=== PATIENT | female | born 1955 | race Caucasian/White ===

== ENCOUNTER 2020-05-21 14:01 | Emergency (ER) | payer BC, SELFPAY ==
[2020-05-21 14:07] VITALS: BP 164/57; BP 170/80; PULSE 72; PULSE 76; RESP 18; TEMP 37.1; O2SAT 100; O2SAT 98; BMI 35.5
--- NOTE | 2020-05-21 14:26 | CT_ITS ---
EXAMINATION: CT HEAD WITHOUT CONTRAST CLINICAL INFORMATION: General weakness. COMPARISON: None TECHNIQUE: Contiguous axial imaging was performed from the skull base to vertex without intravenous administration of contrast. This CT examination was performed using dose optimization techniques as appropriate, variously including the following: *Automated exposure control *Adjustment of mA and/or kV according to patient size (this includes techniques or standardized protocols for targeted exams where dose is matched to indication/reason for exam; i.e. extremities or head) *Use of iterative reconstruction technique DLP: 706 mGy-cm FINDINGS: There is no evidence of acute intracranial hemorrhage or territorial infarction. No abnormal mass effect or midline shift is seen. Cartwright to white matter differentiation is well preserved. No extra-axial fluid collections are identified. The ventricles are normal in size. There is no abnormal attenuation within the brain parenchyma. The osseous structures and soft tissues are normal. The mastoid air cells and visualized portions of the paranasal sinuses are well aerated. CT/CT head/brain wo con IMPRESSION: No acute intracranial pathology.
--- NOTE | 2020-05-21 14:26 | XR_ITS ---
EXAMINATION: XR CHEST CLINICAL INFORMATION: Generalized weakness COMPARISON: January 28, 2020 TECHNIQUE: AP portable view of the chest was obtained. FINDINGS: There is no evidence of acute parenchymal disease, pneumothorax, or pleural effusion. Heart normal size. No evidence of pulmonary edema. Mediastinal contours unremarkable. There is degenerative marginal spurring seen throughout the thoracic spine. XR/XR chest 1V IMPRESSION: No acute parenchymal disease.
--- NOTE | 2020-05-21 14:26 | ECG_ITS ---
Test Reason : GENERALIZED WEAKNESS Blood Pressure : / mmHG Vent. Rate : 060 BPM Atrial Rate : 060 BPM P-R Int : 208 ms QRS Dur : 102 ms QT Int : 404 ms P-R-T Axes : 013 034 038 degrees QTc Int : 404 ms Normal sinus rhythm Normal ECG No previous ECGs available Referred By: Melissa Schuster Electronically Signed By:CHAVEZ KNOX MD
--- NOTE | 2020-05-21 14:41 | US_ITS ---
EXAMINATION: US VENOUS ULTRASOUND WITH DOPPLER LOWER EXTREMITY, RIGHT CLINICAL INFORMATION: Right thigh knee pain COMPARISON: None TECHNIQUE: Ultrasound of the deep veins is performed from the hip to the calf with compression sonography and color and pulse Doppler assessment. Spectral analysis with color-flow imaging is performed. FINDINGS: There is normal venous compression and respiratory variation and augmented flow. The visualized common femoral vein, superficial femoral vein, profunda femoral vein, popliteal vein, and the trifurcation region shows no evidence of deep venous thrombosis. There is no significant popliteal fossa cyst. If the patient's symptoms persist, followup ultrasound in 5 days 7 days might be of value to exclude proximal propagation from a non-visualized calf vein. US/US venous duplex LE RT IMPRESSION: No DVT demonstrated in the right lower extremity.
[2020-05-21 15:27] LABS: MANUAL DIFF FLAG NO
[2020-05-21 15:28] LABS: Basophils Percent Auto 0.3 % (0-2); Eosinophils Absolute Auto 0.1 X10*3/uL (0.0-0.4); Eosinophils Percent Auto 0.8 % (0-4); Hematocrit 35.5 % (37-47); Hemoglobin 11.8 g/dl (12.0-16.0); Imm Gran Abs Auto 0.01 X10*3/uL (0.00-0.03); Imm Gran Pct Auto 0.2 % (0.0-0.4); Lymphocytes Absolute Auto 1.4 X10*3/uL (1.2-4.9); Lymphocytes Percent Auto 20.8 % (20-40); Mean Corpuscular HGB Conc 33.2 g/dl (31.0-35.0); Mean Corpuscular Hemoglobin 28.6 pg (27.0-33.0); Mean Corpuscular Volume 86.2 fL (80-98); Mean Platelet Volume 9.4 fL (9.4-12.3); Monocytes Absolute Auto 0.4 X10*3/uL (0.1-1.2); Monocytes Percent Auto 6.3 % (2-11); Neutrophils Absolute Auto 4.8 X10*3/uL (2.0-8.3); Neutrophils Percent Auto 71.6 % (45-73); Platelet Count 283 X10*3/uL (160-400); Red Blood Count 4.12 X10*6/uL (4.20-5.50); Red Cell Distribution Width 11.8 % (11.0-16.0); White Blood Count 6.6 X10*3/uL (4.8-10.8)
[2020-05-21 15:33] LABS: Prothrombin Time 11.9 SEC (10.8-13.0)
--- NOTE | 2020-05-21 15:34 | ED_ITS ---
HPI - Weakness General Chief complaint: Weakness Stated complaint: Weakness Time Seen by Provider: 05/21/20 14:25 Source: patient Mode of arrival: ambulatory Limitations: no limitations History of Present Illness HPI Narrative: 64yoF c PMHx of HLD, HTN and DM presenting to the ED c c/o lightheadedness x 3 days worse with changing position of head, bending over forward. Relieved by laying down. Patient also reports pain to the right upper outer aspect of thigh. Denies recent head injury or loss of consciousness or falls. Denies any other symptoms complaints or concerns at this time. Denies ever having this before. Related Data Previous Rx's Medication Instructions Recorded meclizine 25 mg PO BID PRN #10 tab 05/21/20 Allergies Allergy/AdvReac Type Severity Reaction Status Date / Time meloxicam Allergy Unknown Verified 05/21/20 14:15 topiramate [From Topamax] Allergy Unknown Verified 05/21/20 14:15 trazodone Allergy Numbness Verified 05/21/20 14:15 Review of Systems Review of Systems: Constitutional : No Fever, No Chills, No Night Sweats, No Fatigue, No Malaise ENT/Mouth : No Ear Pain, No Nasal Congestion, No Sinus Pain, No sore throat, No Rhinorrhea Eyes: No Eye Pain, No Swelling, No Redness, No Foreign Body, No Discharge, No Vision Changes Cardiovascular : No Chest Pain, No SOB, No Dyspnea on Exertion, No Orthopnea, No Palpitations Respiratory : No Cough, No Sputum, No Wheezing, No Dyspnea Gastrointestinal : No Nausea, No Vomiting, No Diarrhea, No Constipation, No abdominal Pain, No Hematochezia, No Melena Genitourinary : No Dysuria, No Urinary Frequency, No Urinary Incontinence, No Urgency, No Flank Pain Musculoskeletal : No joint pain, No Myalgias Skin : No lacerations Neuro : + Lightheadedness pt reports not dizziness, No Numbness, No Paresthesias, No Loss of Consciousness, No Headache Yes all other systems are reviewed and are negative [facility] Past Medical History Attestation statement: The following information was validated with the patient. Medical History Diabetes High cholesterol HTN (hypertension) Social History Social History Advance Directives: No Advance Directives Information Provided: Yes Physical Exam Vital Signs: Vital Signs: Last Vital Signs Temp 98.8 F 05/21/20 14:07 Pulse 89 05/21/20 16:09 Resp 18 05/21/20 14:07 BP 187/73 H 05/21/20 16:09 Pulse Ox 100 05/21/20 14:07 Body Mass Index 35.5 Vital signs have been reviewed as normal and appeared to be correct. Blood pressure normal. Heart rate normal. Respiration rate normal. Temperature normal. Oxygen saturation normal. Appearance: Alert. Oriented X3. No acute distress. Head: Normal external exam. Normocephalic. Atraumatic. Able to rotate head b ilaterally. Eyes: PERRLA. EOMI. No nystagmus noted. Conjunctiva and sclera normal. Eyelids normal. Corneal reflex normal. ENT: EAC normal. TM's Normal. Hearing normal. Pharynx normal. Uvula midline. tongue midline. Moist mucous membranes. No trismus noted. No drooling noted. No muffled voice noted. Neck: Normal inspection. Neck supple. FROM. No adenopathy. Thyroid Normal. No meningeal signs. No neck mass noted. CVS: Normal heart rate and rhythm. Heart sound normal. No murmurs noted. Pulses normal throughout. Respiratory: No respiratory distress. Painless inspiration. Breath sounds norm al. No wheezes/rales/rhonchi noted. Chest nontender. No accessory muscle usage noted or decreased air movement noted. Abdomen: Soft and nontender. Bowel sounds normal in all 4 quadrants. No distenti on noted. No organomegaly noted. No visible injury noted. Back: No CVA tenderness. Full range of motion noted. Skin: Skin warm and dry. Normal skin color. Normal skin turgor. No rashes/lesions/lacerations noted. Extremities: TTP to right upper outer aspect of thigh. No lower extremity edema. Extremities exhibit normal range of motion. otherwise all other Extremities nontender. Able to shrug shoulders bilaterally and keep up against resistance. Neuro: Oriented X 3. No motor deficit. No sensory deficit. Reflexes normal. Moving all extremities. No focal motor deficits. Cranial nerves II-XI intact bilaterally. Facial strength normal. Normal cognition. Speech normal. Gait normal. Strength 5/5 throughout. No pronator drift. No tremor noted. No fasciculations noted. Muscle tone normal throughout. No asterixis noted. Axwjan-ma-oipj test normal. Heel to mary test normal. Tandem gait normal. Does not sway with eyes open. Romberg test negative. Rapid alternating movement upper extremity normal. Rapid alternating movement lower extremity normal. Hand drop from overhead-Mrs. face. No rigidity noted. NIHSS score 0. NIH Stroke Scale Internal: Initial- Upon Arrival Time: 14:26 Level of Consciousness: Alert Level of Consciousness Questions: Answers both questions correctly Level of Consciousness Commands: Performs both tasks correctly Best Gaze: Normal Visual: No visual loss Facial Palsy: Normal Motor Arm (Right): No drift Motor Arm (Left): No drift Motor Leg (Right): No drift Motor Leg (Left): No drift Limb Ataxia: Absent Sensory: Normal Best Language: No aphasia Dysarthia: Normal Extinction and Inattention: No abnormality Score: 0 Course Course Course Narrative: 14:26PM - 64yoF c PMHx of HLD, HTN and DM presenting to the ED c c/o lightheadedness x 3 days worse with changing position of head, bending over forward. Relieved by laying down. Patient also reports pain to the right outer aspect of the thigh. - on exam patient is alert and oriented x3. No acute neuro deficits noted. Patient has a normal steady gait. NIH SS score 0. TPA not indicated at this time due to symptoms to mild and non disabling. - Concern for CVA vs FL vs electrolyte abnormality vs orthostatic hypotension vs vertigo vs DVT vs leg strain - Plan: Labs, CT scan of brain, CXR, EKG, Orthostatic vitals, US of RLE then re-evaluate. Reevaluation(s) Reevaluation #1: - All labs WNL. CT scan of brain WNL. CXR WNL. Orthostatic vitals WNL. EKG NSR no acute ischemic changes noted. - patient requesting COVID swab therefore will swab. Will give 50 mg of mecl izine patient most likely vertigo as this has been occurring for the past 3 days therefore no further imaging indicated at this time. - will DC home with a script for meclizine and instructions to return if any new or worsening symptoms to follow-up with primary care provider. Patient understands agrees the plan. Time: 17:34 [facility] - Weakness Medical Records Attestation: I reviewed the patient's medical records. Lab Data Attestation: I reviewed the patient's lab results. Result diagrams: 05/21/20 15:19 05/21/20 15:19 Labs: Lab Results 05/21/20 05/21/20 05/21/20 Range/Units 15:19 15:19 15:19 WBC 6.6 (4.8-10.8) X10*3/uL RBC 4.12 L (4.20-5.50) X10*6/uL Hgb 11.8 L (12.0-16.0) g/dl Hct 35.5 L (37-47) % MCV 86.2 (80-98) fL MCH 28.6 (27.0-33.0) pg MCHC 33.2 (31.0-35.0) g/dl RDW 11.8 (11.0-16.0) % Plt Count 283 (160-400) X10*3/uL MPV 9.4 (9.4-12.3) fL Immature Gran % (Auto) 0.2 (0.0-0.4) % Neut % (Auto) 71.6 (45-73) % Lymph % (Auto) 20.8 (20-40) % [place] % (Auto) 6.3 (2-11) % Eos % (Auto) 0.8 (0-4) % Baso % (Auto) 0.3 (0-2) % Lymph # (Auto) 1.4 (1.2-4.9) X10*3/uL [place] # (Auto) 0.4 (0.1-1.2) X10*3/uL Eos # (Auto) 0.1 (0.0-0.4) X10*3/uL Baso # (Auto) 0.0 (0.0-0.2) X10*3/uL Abs Immat Gran (auto) 0.01 (0.00-0.03) X10*3/uL Absolute Neuts (auto) 4.8 (2.0-8.3) X10*3/uL Absolute Nucleated RBC 0.000 (0.0-0.012) X10*3/uL Nucleated RBC % (auto) 0.0 (0.0-0.2) /100WBC PT 11.9 (10.8-13.0) SEC INR 1.0 (0.9-1.1) Sodium 138 (135-145) mmol/L Potassium 4.4 (3.3-5.1) mmol/l Chloride 100 (96-108) mmol/L Carbon Dioxide 31 H (22-29) mmol/L Anion Gap 11 L (12-20) BUN 17 H (9-16) mg/dL Creatinine 0.79 (0.5-1.4) mg/dL Estim Creat Clear Calc 85.7 Estimated GFR > 60 Random Glucose 136 H (60-115) mg/dL Calcium 9.1 (8.4-10.2) mg/dL Magnesium (1.6-2.6) mg/dL Total Bilirubin (0.0-1.0) mg/dL Direct Bilirubin (0.0-0.5) mg/dL AST (5-31) U/L ALT (0-31) U/L Alkaline Phosphatase (39-117) U/L Troponin I High Sens (<3.5-17.0) ng/L Total Protein (6.5-8.0) g/dL Albumin (3.5-5.0) g/dL 05/21/20 05/21/20 Range/Units 15:19 15:19 WBC (4.8-10.8) X10*3/uL RBC (4.20-5.50) X10*6/uL Hgb (12.0-16.0) g/dl Hct (37-47) % MCV (80-98) fL MCH (27.0-33.0) pg MCHC (31.0-35.0) g/dl RDW (11.0-16.0) % Plt Count (160-400) X10*3/uL MPV (9.4-12.3) fL Immature Gran % (Auto) (0.0-0.4) % Neut % (Auto) (45-73) % Lymph % (Auto) (20-40) % [place] % (Auto) (2-11) % Eos % (Auto) (0-4) % Baso % (Auto) (0-2) % Lymph # (Auto) (1.2-4.9) X10*3/uL [place] # (Auto) (0.1-1.2) X10*3/uL Eos # (Auto) (0.0-0.4) X10*3/uL Baso # (Auto) (0.0-0.2) X10*3/uL Abs Immat Gran (auto) (0.00-0.03) X10*3/uL Absolute Neuts (auto) (2.0-8.3) X10*3/uL Absolute Nucleated RBC (0.0-0.012) X10*3/uL Nucleated RBC % (auto) (0.0-0.2) /100WBC PT (10.8-13.0) SEC INR (0.9-1.1) Sodium (135-145) mmol/L Potassium (3.3-5.1) mmol/l Chloride (96-108) mmol/L Carbon Dioxide (22-29) mmol/L Anion Gap (12-20) BUN (9-16) mg/dL Creatinine (0.5-1.4) mg/dL Estim Creat Clear Calc Estimated GFR Random Glucose (60-115) mg/dL Calcium (8.4-10.2) mg/dL Magnesium 2.0 (1.6-2.6) mg/dL Total Bilirubin 0.4 (0.0-1.0) mg/dL Direct Bilirubin < 0.2 (0.0-0.5) mg/dL AST 18 (5-31) U/L ALT 20 (0-31) U/L Alkaline Phosphatase 74 (39-117) U/L Troponin I High Sens < 3.5 (<3.5-17.0) ng/L Total Protein 6.6 (6.5-8.0) g/dL Albumin 4.2 (3.5-5.0) g/dL Imaging Data Chest x-ray: Attestation: I personally reviewed and interpreted this imaging study as follows: Radiologist's impression: FINDINGS: There is no evidence of acute parenchymal disease, pneumothorax, or pleural effusion. Heart normal size. No evidence of pulmonary edema. Mediastinal contours unremarkable. There is degenerative marginal spurring seen throughout the thoracic spine. XR/XR chest 1V IMPRESSION: No acute parenchymal disease. CT scan - head: Attestation: I personally reviewed and interpreted this imaging study as follows: Radiologist's impression: FINDINGS: There is no evidence of acute intracranial hemorrhage or territorial infarction. No abnormal mass effect or midline shift is seen. Cartwright to white matter differentiation is well preserved. No extra-axial fluid collections are identified. The ventricles are normal in size. There is no abnormal attenuation within the brain parenchyma. The osseous structures and soft tissues are normal. The mastoid air cells and visualized portions of the paranasal sinuses are well aerated. CT/CT head/brain wo con IMPRESSION: No acute intracranial pathology. right leg ultrasound: Attestation: I personally reviewed and interpreted this imaging study as follows: Radiologist's impression: FINDINGS: There is no evidence of acute intracranial hemorrhage or territorial infarction. No abnormal mass effect or midline shift is seen. Cartwright to white matter differentiation is well preserved. No extra-axial fluid collections are identified. The ventricles are normal in size. There is no abnormal attenuation within the brain parenchyma. The osseous structures and soft tissues are normal. The mastoid air cells and visualized portions of the paranasal sinuses are well aerated. CT/CT head/brain wo con IMPRESSION: No acute intracranial pathology. ECG Data Attestation: I personally reviewed and interpreted this ECG as follows: ECG interpretation date: 05/21/20 ECG interpretation time: 15:11 Interpretation: Normal sinus rhythm with a ventricular rate of 60 with normal NM interval and normal QRS duration. Normal QT/QTC interval. No acute ischemic changes. Discharge Plan Discharge Clinical Impression: Vertigo, Muscle strain Patient Disposition: Home, Self-Care Instructions: Vertigo (ED) Prescriptions: New meclizine 25 mg tablet 25 mg PO BID PRN (Reason: dizziness) Qty: 10 RF: 0 Referrals: Jerald Singh MD [Primary Care Provider] - 2 days Print Language: Israeli
[2020-05-21 15:47] LABS: Anion Gap 11 (12-20); Blood Urea Nitrogen 17 mg/dL (9-16); Calcium 9.1 mg/dL (8.4-10.2); Carbon Dioxide 31 mmol/L (22-29); Chloride 100 mmol/L (96-108); Creatinine Clr Calc Pharmacy 85.7; Estimated Glomerular Filt Rate > 60; Glucose Random 136 mg/dL (60-115); Potassium 4.4 mmol/l (3.3-5.1); Sodium 138 mmol/L (135-145)
[2020-05-21 15:49] LABS: Alanine Aminotransferase 20 U/L (0-31); Albumin Level 4.2 g/dL (3.5-5.0); Alkaline Phosphatase 74 U/L (39-117); Aspartate Amino Transferase 18 U/L (5-31); Bilirubin Direct < 0.2 mg/dL (0.0-0.5); Bilirubin Total 0.4 mg/dL (0.0-1.0); Total Protein 6.6 g/dL (6.5-8.0)
[2020-05-21 15:55] LABS: Troponin-I High Sensitivity < 3.5 ng/L (<3.5-17.0)
[2020-05-21 16:07] VITALS: BP 162/67; PULSE 81
[2020-05-21 16:08] VITALS: BP 150/55; PULSE 75
[2020-05-21 16:09] VITALS: BP 187/73; PULSE 89
[2020-05-21] MEDS: Meclizine HCl 25 MG TABLET 50 MG PO (17:22)
--- NOTE | 2020-05-21 17:22 | PC.NURSE ---
MEDICATED PER ORDERS WITH MECLIZIINE
--- NOTE | 2020-05-21 18:19 | PC.NURSE ---
CLEARED FOR DC BY PROVIDER.
[2020-05-21 18:39] LABS: Influenza A PCR NEGATIVE (Negative); Influenza B PCR NEGATIVE (Negative); Resp Syncy Virus RNA Qual PCR NEGATIVE (Negative); SARS COV2 PCR INHOUSE NEGATIVE (Negative)
== END 2020-05-21 18:18 | disposition home or self-care (01) ==
PROVIDERS: Physician Assistant Medical; Emergency Provider Emergency Medicine; PCP Internal Medicine Medical Oncology
DX: S76.911A Strain of unspecified muscles, fascia and tendons at thigh level, right thigh, initial encounter (principal); R60.0 Localized edema; R42 Dizziness and giddiness; R53.1 Weakness; X58.XXXA Exposure to other specified factors, initial encounter; Y93.9 Activity, unspecified; Y92.9 Unspecified place or not applicable; Y99.9 Unspecified external cause status; Z79.899 Other long term (current) drug therapy
CPT/HCPCS: 0241U; 36415; 70450; 71045; 80048; 80076; 83735; 84484; 85025; 85610; 93005; 93971; 99283; 99284

== ENCOUNTER 2021-05-14 09:12 | Outpatient (REF) | payer MEDICARE, SELFPAY | END 2021-05-14 09:13 | disposition home or self-care (01) | LOC: HO.LAB 09:12 | PROVIDERS: PCP Internal Medicine Medical Oncology; Visit Provider Internal Medicine | DX: Z20.822 Contact with and (suspected) exposure to COVID-19 (principal) | CPT/HCPCS: C9803; U0003; U0005 ==

== ENCOUNTER 2023-11-20 08:05 | Emergency (ER) | payer MEDICARE, SELFPAY ==
--- NOTE | ~2023-11-20 | XR_ITS ---
EXAMINATION: XR CHEST CLINICAL INFORMATION: Palpitations COMPARISON: 05/21/2020 TECHNIQUE: 2 views of the chest were obtained. FINDINGS: No significant abnormality is noted involving the heart, lungs, mediastinum, bony thorax or soft tissues. XR/XR chest 2V IMPRESSION: Unremarkable examination.
--- NOTE | 2023-11-20 08:10 | ECG_ITS ---
Test Reason : afib Blood Pressure : / mmHG Vent. Rate : 072 BPM Atrial Rate : 072 BPM P-R Int : 186 ms QRS Dur : 092 ms QT Int : 358 ms P-R-T Axes : 038 021 034 degrees QTc Int : 392 ms Normal sinus rhythm Possible Left atrial enlargement Borderline ECG When compared to the previous EKG of No significant changes seen Referred By: Generic ED Physician Electronically Signed By:SHILA BAHENA MD
[2023-11-20 08:12] VITALS: BP 148/59; PULSE 80; RESP 19; TEMP 36.6; O2SAT 97; BMI 32.3
[2023-11-20 08:32] LABS: MANUAL DIFF FLAG NO
[2023-11-20 08:34] LABS: Basophils Percent Auto 0.7 % (0-2); Eosinophils Absolute Auto 0.1 X10*3/uL (0.0-0.4); Hematocrit 38.9 % (37.0-47.0); Hemoglobin 13.6 g/dl (12.0-16.0); Imm Gran Abs Auto 0.01 X10*3/uL (0.00-0.03); Imm Gran Pct Auto 0.2 % (0.0-0.4); Lymphocytes Absolute Auto 1.7 X10*3/uL (1.2-4.9); Lymphocytes Percent Auto 28.2 % (20-40); Mean Corpuscular Hemoglobin 29.3 pg (27.0-33.0); Mean Corpuscular Volume 83.8 fL (80.0-98.0); Mean Platelet Volume 9.2 fL (9.4-12.3); Monocytes Absolute Auto 0.3 X10*3/uL (0.1-1.2); Monocytes Percent Auto 5.2 % (2-11); Neutrophils Absolute Auto 3.8 x10*3/uL (2.0-8.3); Neutrophils Percent Auto 64.7 % (45-73); Platelet Count 348 X10*3/uL (160-400); Red Blood Count 4.64 X10*6/uL (4.20-5.50); Red Cell Distribution Width 11.9 % (11.0-16.0); White Blood Count 5.9 X10*3/uL (4.8-10.8)
[2023-11-20 08:40] LABS: Prothrombin Time 12.3 SEC (11.1-13.3)
[2023-11-20 08:47] LABS: Anion Gap 14 (12-20); Blood Urea Nitrogen 13 mg/dL (9-16); Calcium 9.9 mg/dL (8.4-10.2); Carbon Dioxide 28 mmol/L (22-29); Chloride 103 mmol/L (96-108); Creatinine Clr Calc Pharmacy 80.3; Estimated Glomerular Filt Rate > 60; Glucose Random 110 mg/dL (60-115); Potassium 4.1 mmol/L (3.3-5.1); Sodium 141 mmol/L (135-145)
[2023-11-20 08:55] LABS: Troponin-I High Sensitivity 3.5 ng/L (<3.5-17.0)
[2023-11-20 12:24] VITALS: BP 149/58; PULSE 60; RESP 15; O2SAT 99
--- NOTE | 2023-11-20 12:31 | PC.NURSE ---
Pt presents to ED from home, reports around 10PM last night she started to feel palpitations and rapid heart beat. Pt reports this lasted through the night, along with mild chest pressure 2/10 in substernal area. Pt reports the palpitations have resolved, no hx of afib or other cardiac issues. Pt called her PCP who advised her to come into ED. Pt denies any SOB, N/V/D, fevers, cough, recent illnesses or falls/injury. Pt is alert and oriented, breathing even and unlabored, skin warm and dry. VSS, pt placed on bedside laboratory monitor, NSR at this time.
--- NOTE | 2023-11-20 12:39 | ED.ARRPALP ---
HPI - Arrhythmia/Palpitations General Chief Complaint: Arrhythmia/Palpitations Stated Complaint: Afib Time Seen by Provider: 11/20/23 12:07 Source: patient Mode of arrival: ambulatory History of Present Illness HPI narrative: 68-year-old female with history of diabetes/thyroid dysfunction/hypertension, currently compliant on all medication, saw her primary care doctor approximately 1 month ago and lab work at that time was within normal limits. Denies any excessive alcohol use, has been on Ozempic for proximally 1 month and presents with onset of pounding heart/rapid heart rate that started approximately 2 hours after she went to bed and was having difficulty falling asleep, according to the patient her watch indicated that she may be experiencing atrial fibrillation, she states that this situation lasted a total of 6 hours but denied any shortness of breath or difficulty breathing during that time. She denies any recent changes in medications or initiation of new medications. Related Data Previous Rx's ?Medication ?Instructions ?Recorded meclizine 25 mg tablet 25 mg PO BID PRN dizziness #10 tabs 05/21/20 Allergies Allergy/AdvReac Type Severity Reaction Status Date / Time celecoxib [From Celebrex] Allergy Hypertensio Verified 11/20/23 08:14 n meloxicam Allergy Unknown Verified 11/20/23 08:14 topiramate [From Topamax] Allergy Unknown Verified 11/20/23 08:14 trazodone Allergy Numbness Verified 11/20/23 08:14 Review of Systems Review of Systems: Pertinent positives and negatives as stated in HPI PMFSH Past Medical History Source: nursing notes reviewed Medical History Diabetes High cholesterol HTN (hypertension) Social History Social History Smoked in Last 30 Days: No Use of substances other than those prescribed or required for medical reasons: No Advance Directives: No Advance Directives Information Provided: Yes Physical Exam Vital Signs: Vital Signs: Last Vital Signs Temp 98 F 11/20/23 08:12 Pulse 60 11/20/23 12:24 Resp 15 11/20/23 12:24 BP 149/58 H 11/20/23 12:24 Pulse Ox 99 11/20/23 12:24 O2 Del Method Room Air 11/20/23 12:24 BMI result Body Mass Index 32.3 VITAL SIGNS: Reviewed. GENERAL: Well developed, well nourished, in no acute distress. HEAD: Normocephalic/atraumatic EYES: PERRLA, EOMI LUNGS: Normal breath sounds. No adventitious sounds or accessory muscle use. SpO2<99> CARDIOVASCULAR: Regular rate and rhythm without noted murmurs, no JVD or lower extremity edema. ABDOMEN: Soft, non-tender, non-distended with bowel sounds. MUSCULOSKELETAL: No tenderness, deformities, or effusions noted on gross inspection. EXTREMITIES: No cyanosis, clubbing or edema. SKIN: Inspection of the skin reveals no rashes NEUROLOGIC: Alert and oriented x 4. Strength and sensation to light touch were grossly intact x 4. Medical Decision Making Medical Decision Making [facility] Narrative: 68-year-old female with history and clinical presentation, DDX: Possibility of SVT/atrial fibrillation/PVCs secondary to infection/fever/electrolyte derangement. I reviewed all investigations and hematologic indices are negative for leukocytosis/anemia/thrombocytopenia. Coagulation studies are within normal limits. Chemistry indices do not indicate any ERICK or electrolyte derangement and high sensitivity troponin levels are detectable but not elevated and there are no acute arrhythmias or ST elevations noted on EKG. Chest x-ray negative for infiltrate or venous congestion otherwise my interpretation is in agreement with radiology's impression. Patient is not currently in an irregular heart rhythm, inappropriate to calculate chads Vasc score at this time, patient is hemodynamically stable and otherwise will benefit from outpatient follow-up in the short term for evaluation with either event monitor or Holter monitor and outpatient echocardiogram. She was discharged with return precautions. Differential Diagnosis Differential Diagnoses: The differential diagnosis associated with the presentation includes Please see the discussion above Admission/Observation Consideration of admission/observation: Escalation of care including admission/observation considered Please see the discussion above Lab Data [facility] Lab Attestation statement: I reviewed the patient's lab results. Please see the discussion above 11/20/23 08:29 11/20/23 08:29 Labs: Lab Results 11/20/23 Range/Units 08:29 WBC 5.9 (4.8-10.8) X10*3/uL RBC 4.64 (4.20-5.50) X10*6/uL Hgb 13.6 (12.0-16.0) g/dl Hct 38.9 (37.0-47.0) % MCV 83.8 (80.0-98.0) fL MCH 29.3 (27.0-33.0) pg MCHC 35.0 (31.0-35.0) g/dl RDW 11.9 (11.0-16.0) % Plt Count 348 (160-400) X10*3/uL MPV 9.2 L (9.4-12.3) fL Immature Gran % (Auto) 0.2 (0.0-0.4) % Neut % (Auto) 64.7 (45-73) % Lymph % (Auto) 28.2 (20-40) % [place] % (Auto) 5.2 (2-11) % Eos % (Auto) 1.0 (0-4) % Baso % (Auto) 0.7 (0-2) % Lymph # (Auto) 1.7 (1.2-4.9) X10*3/uL [place] # (Auto) 0.3 (0.1-1.2) X10*3/uL Eos # (Auto) 0.1 (0.0-0.4) X10*3/uL Baso # (Auto) 0.0 (0.0-0.2) X10*3/uL Abs Immat Gran (auto) 0.01 (0.00-0.03) X10*3/uL Absolute Neuts (auto) 3.8 (2.0-8.3) x10*3/uL Absolute Nucleated RBC 0.000 (0.0-0.012) X10*3/uL Nucleated RBC % (auto) 0.0 (0.0-0.2) /100WBC PT 12.3 (11.1-13.3) SEC INR 1.0 (0.9-1.1) Sodium 141 (135-145) mmol/L Potassium 4.1 (3.3-5.1) mmol/L Chloride 103 (96-108) mmol/L Carbon Dioxide 28 (22-29) mmol/L Anion Gap 14 (12-20) BUN 13 (9-16) mg/dL Creatinine 0.76 (0.5-1.4) mg/dL Estim Creat Clear Calc 80.3 Estimated GFR > 60 Random Glucose 110 (60-115) mg/dL Calcium 9.9 D (8.4-10.2) mg/dL Troponin I High Sens 3.5 (<3.5-17.0) ng/L Independent Interpretation I performed an independent interpretation of an: EKG Interpretation: Normal sinus rhythm, HR-72, no STEMI, MT/QRS/QTC is within normal limits. There are no acute changes when compared to prior EKG from May/2020 Radiology Impression Discussion of test interpretation with radiology: I have reviewed the radiologist's reading. Radiologist Impression: Please see the discussion above External Record Review External record reviewed: Outpatient record and Prior outpatient labs Chronic Conditions Patient?s care impacted by: Diabetes and Hypertension Thyroid dysfunction Critical Care Time Critical Care Time Critical Care Time: Yes Total Critical Care Time: 30 Attestation: I personally attest to this time spent taking care of the patient. Discharge Plan Discharge Clinical Impression: Palpitations Patient Disposition: Home, Self-Care Instructions: Heart Palpitations (ED) Additional Instructions: 1. Resume all home medications as prescribed. 2. Please call the office of your primary care doctor and set up an appointment for re-evaluation and discuss the possibility of setting up an appointment for all Holter monitor or event monitor to better characterize the palpitations that you experience yesterday. 3. Please find a referral for [facility] associated standard machine stitcher. You may call the office and set up an appointment for outpatient evaluation. Do not hesitate to return to the emergency room should you experience any further symptoms especially if they include things such as shortness of breath or dizziness. Prescriptions: No Action meclizine 25 mg tablet 25 mg PO BID PRN (Reason: dizziness) Qty: 10 0RF Referrals: Jerald Singh MD [Primary Care Provider] - Wilber Navarro MD [Physician] - Print Language: Greek
[2023-11-20 13:12] VITALS: BP 120/52; PULSE 70; RESP 16; TEMP 36.4; O2SAT 98
[2023-11-20 13:13] VITALS: BP 120/52; PULSE 70; RESP 16; TEMP 36.4; O2SAT 98
== END 2023-11-20 15:50 | disposition home or self-care (01) ==
PROVIDERS: Emergency Provider Student in an Organized Health Care Education/Training Program; PCP Internal Medicine Medical Oncology
DX: I48.91 Unspecified atrial fibrillation (principal); R00.2 Palpitations; Z79.899 Other long term (current) drug therapy
CPT/HCPCS: 36415; 71046; 80048; 84484; 85025; 85610; 93005; 99283; 99285

== ENCOUNTER → 2023-11-20 08:10 | Outpatient (BNV) | payer MEDICARE, SELFPAY | PROVIDERS: PCP Internal Medicine Medical Oncology; Visit Provider Internal Medicine Cardiovascular Disease | DX: I48.91 Unspecified atrial fibrillation (principal) | CPT/HCPCS: 93010 ==

== ENCOUNTER 2024-10-21 10:44 | Outpatient (REF) | payer MEDICARE, SELFPAY ==
--- NOTE | ~2024-10-21 | XR_ITS ---
EXAMINATION: XR FOOT, LEFT CLINICAL INFORMATION: LEFT FOOT PAIN COMPARISON: None available. TECHNIQUE: AP, lateral, and oblique views of the left foot. FINDINGS: Transverse fracture at the base of the fifth metacarpal. No significant displacement. No additional fracture or focal bony abnormality. No bone lesion. There is normal alignment. There is normal plantar arch. There is a moderate-sized plantar and tiny dorsal calcaneal spur. Mild tibiotalar joint degenerative changes. Mild lateral soft tissue swelling overlying the fracture site. Soft tissues otherwise normal. XR/XR foot LT min 3V IMPRESSION: Transverse fracture base of fifth metatarsal, no displacement. Electronically signed by: Jonhny Shea MD 10/21/2024 11:43 AM EDT
--- OUTSIDE RECORDS SUMMARY | 2024-10-21 12:30 | XMS_ITS | Encounter Summary ---
Author Organization [facility] Address [address] [place] [address] Care Team Providers Care Type Caster Name Role Phone Unavailable Primary Care Provider Unavailabl e Encounter Details Date Type Department Care Team (Late st Contact Info) Description 06/18/2024 Lab Requisition [facility] Lab [address] [facility] [place] [address] Chyna Hawkins NP [address] [facility] [address] [place] [address] Dysuria Social History Tobacco Use Types Packs/Day Years Used Date Smoking Tobacco: Never Assessed Comments Unknown Sex and Gender Information Value Date Recorded Sex Assigned at Not on file Legal Sex Female 8:22 PM EST Gender Identity Not on file Sexual Orientation Not on file documented as of this encounter Plan of Treatment Not on file documented as of this encounter Procedures Procedure Name Priority Date/Time Associated Diagnosis Comments BACTERIAL IDENTIFICATION AND SUSCEPTIBILITY, AEROBIC Routine 06/18/2024 12:00 AM EST Dysuria documented in this encounter Results * (ABNORMAL) Bacterial identification and susceptibility, aerobic (06/18/2024 12:00 AM EST) Culture, Bacterial ID and Sensitivity Escherichia coli(A) JESSICA 06/19/2024 8:26 AM EST [facility] Other Urine specimen from urethra / Unknown 06/18/2024 06/18/2024 10:05 AM EST Narrative Organism Antibiotic Method Susceptibility Escherichia coli Amoxicillin/Clavulanate JESSICA <=2 ug/ml: Susceptible Escherichia coli Ampicillin/Sulbactam JESSICA 4 ug/ml: Susceptible Escherichia coli Piperacillin/Tazobactam JESSICA <=4 ug/ml: Susceptible Escherichia coli Cefazolin (Urine) JESSICA <=1 ug/ml: Susceptible Escherichia coli Cefoxitin JESSICA <=4 ug/ml: Susceptible Escherichia coli Ceftazidime JESSICA <=0.5 ug/ml: Susceptible Escherichia coli Ceftriaxone JESSICA <=0.25 ug/ml: Susceptible Escherichia coli Cefepime JESSICA <=0.12 ug/ml: Susceptible Escherichia coli Meropenem JESSICA <=0.25 ug/ml: Susceptible Escherichia coli Amikacin JESSICA 2 ug/ml: Susceptible Escherichia coli Gentamicin JESSICA <=1 ug/ml: Susceptible Escherichia coli Ciprofloxacin JESSICA <=0.06 ug/ml: Susceptible Escherichia coli Levofloxacin JESSICA <=0.12 ug/ml: Susceptible Escherichia coli Nitrofurantoin JESSICA <=16 ug/ml: Susceptible Escherichia coli Trimethoprim/Sulfamethoxazole JESSICA <=20 ug/ml: Susceptible us Chyna Hawkins NP LAB MICROBIOLOGY - GENERA L ORDERABLES Final Result [facility] ([facility]) [facility] [address] [place] [address], documented in this encounter Visit Diagnoses Diagnosis Dysuria documented in this encounter
--- OUTSIDE RECORDS SUMMARY | 2024-10-21 12:30 | XMS_ITS | Encounter Summary ---
Author Organization [facility] Address [address] [place] [address] Care Team Providers Care Fire Control Technician G Name Role Phone Unavailable Primary Care Provider Unavailabl e Encounter Details Date Type Department Care Team (Late st Contact Info) Description 08/02/2024 Lab Requisition [facility] [address] [place] [address] Felix Santos MD [address] [address] Dysuria Social History Tobacco Use Types Packs/Day [...] Procedure Name Priority Date/Time Associated Diagnosis Comments CULTURE URINE Routine 08/02/2024 12:00 AM EST Dysuria documented in this encounter Results * Culture urine (08/02/2024 12:00 AM EST) Culture, Urine 10,000-49,000 CFU/mL Mixed urogenital danika, no uropathogens present. Suggest repeat specimen if clinically indicated. 08/03/2024 1:55 PM EST [facility] Urine Urine specimen from urethra / Unknown 08/02/2024 08/02/2024 6:08 PM EST us Felix Santos MD LAB MICROBIOLOGY - GENERAL ORDER LENA Final Result [facility] [address] [place], [place] [address] [phone] documented in this encounter Visit Diagnoses Diagnosis Dysuria documented in this encounter
--- OUTSIDE RECORDS SUMMARY | 2024-10-21 12:30 | XMS_ITS ---
Author Name [facility] Organization Unknown Care Team Organization Name Specialty Phone Email Start Date End Da RUST [facility] 11/07/2023
--- OUTSIDE RECORDS SUMMARY | 2024-10-21 12:30 | XMS_ITS | Patient Health Record ---
Author Organization Jerald Singh III, MD Address [address] [place] [address] [place] [address] Care Team Providers Care Financial Accountant Name Role Phone Jerald Singh Primary Care Provider Allergies Allergen (clinical drug ingredient) Drug/Non Drug Allergy documented on EMR Reaction Allergy Type Onset Date Status meloxicam Meloxicam Unknown Drug Allergy Active Wellbutrin Unknown Drug Allergy Active topiramate Topamax Unknown Drug Allergy Active escitalopram Lexapro Unknown Drug Allergy Acti ve Effexor Unknown Drug Allergy Active celecoxib CeleBREX Unknown Drug Allergy Active Results Component Value Reference Range Notes URINE DIP STICK Reviewed date:10/21/2024 09:45:28 AM Interpretation: Performing Lab: Notes/Report: SG 1.010 1.005 - 1.025 pH 6.0 5.0 - 9.0 GUCCI Negative Negative - NIT Negative Negative - PRO Negative Negative - Trace GLU Negative Negative - KET Negative Negative - UBG 0.2 0.1 - 1.8 DANNY Negative 0.2 - 1.3 BLD Negative Negative - Complete Blood Count Auto Di ff Reviewed date:11/20/2023 12:08:02 PM Interpretation: Performing Lab:[facility], [address] [place] [id number] Notes/Report: White Blood Count 5.9 4.8-10.8 X10*3/uL Red Blood Count 4.64 4.20-5.50 X10*6/uL Hemoglobin 13.6 12.0-16.0 g/dl Hematocrit 38.9 37.0-47.0 % Mean Corpuscular Volume 83.8 80.0-98.0 fL Mean Corpuscular Hemoglobin 29.3 27.0-33.0 pg Mean Corpuscular HGB Conc 35.0 31.0-35.0 g/dl Red Cell Distribution Width 11.9 11.0-16.0 % Platelet Count 348 160-400 X10*3/uL Mean Platelet Volume 9.2 9.4-12.3 fL Neutrophils Percent Auto 64.7 45-73 % Imm Gran Pct Auto 0.2 0.0-0.4 % Lymphocytes Percent Auto 28.2 20-40 % Monocytes Percent Auto 5.2 2-11 % Eosinophils Percent Auto 1.0 0-4 % Basophils Percent Auto 0.7 0-2 % NRBC Pct Auto 0.0 0.0-0.2 /100WBC Neutrophils Absolute Auto 3.8 2.0-8.3 x10*3/uL Imm Gran Abs Auto 0.01 0.00-0.03 X10*3/uL Lymphocytes Absolute Auto 1.7 1.2-4.9 X10*3/uL Monocytes Absolute Auto 0.3 0.1-1.2 X10*3/uL Eosinophils Absolute Auto 0.1 0.0-0.4 X10*3/uL Basophils Absolute Auto 0.0 0.0-0.2 X10*3/uL NRBC Abs Auto 0.000 0.0-0.012 X10*3/uL Prothrombin Time INR Reviewed date:11/20/2023 12:08:02 PM Interpretation: Performing Lab:[address] [address] Notes/Report: Prothrombin Time 12.3 11.1-13.3 SEC INTERNATIONAL NORM RATIO 1.0 0.9-1.1 INTERNATIONAL NORMALIZED RATIO (INR) REFERENCE RANGES Reference Range For patients not on anticoagulant therapy: 0.9 - 1.1 INR ranges for oral anticoagulant therapy: For prevention and treatment of venous thrombosis and pulmonary embolism: 2.0 - 3.0 For acute myocardial infarction with aspirin therapy: 2.0 - 3.0 For acute myocardial infarction without aspirin therapy: 3.0 - 4.0 For patients with mechanical prosthetic heart valves: 2.5 - 3.5 Basic Metabolic Panel Reviewed date:11/20/2023 12:08:02 PM Interpretation: Performing Lab:[address] [address] Notes/Report: Sodium 141 135-145 mmol/L Potassium 4.1 3.3-5.1 mmol/L Chloride 103 96-108 mmol/L Carbon Dioxide 28 22-29 mmol/L Anion Gap 14 12-20 Blood Urea Nitrogen 13 9-16 mg/dL Creatinine 0.76 0.5-1.4 mg/dL Creatinine Clr Calc Pharmacy 80.3 Provided height and weight: 167.64 cm, 90.718 kg. eGFR (calculated from the MDRD study equation) and eCrCl (calculated from the Cockcroft-Gault equation) are based on different parameters and may not yield comparable results. If eCrCl result is absurd, please check patient's height/weight. Estimated Glomerular Filt Rate > 60 NOTE: For -Azerbaij[place] individuals, multiply the result by 1.210. Chronic Kidney Disease: Estimated GFR < 60 mL/min/1.73m2 Severe Kidney Disease: Estimated GFR < 15 mL/min/1.73m2 Glucose Random 110 60-115 mg/dL Calcium 9.9 8.4-10.2 mg/dL Troponin-I High Sensitivity Reviewed date:11/20/2023 12:08:02 PM Interpretation: Performing Lab:[facility], [address] [place] [id number] Notes/Report: Troponin-I High Sensitivity 3.5 <3.5-17.0 ng/L The Aranda high sensitivity Troponin-I results should be used in conjunction with other diagnostic information such as ECG, clinical observations and information, and patient symptoms to aid in the diagnosis of [place]. XR chest 2V Reviewed date:11/20/2023 12:08:02 PM Interpretation: Performing Lab: Notes/Report: [address] [address] XRay Report Signed Patient: Andria Subramanian MR#: [id number] 85 : 1955 Acct:[id number] Age/Sex: 68 / F ADM Date: 11/20/23 Loc: .ED Attending Dr: Ordering Physician: Generic ED Physician Date of Service: 11/20/23 Procedure(s): XR chest 2V Accession Number(s): [id number] cc: Jerald Singh MD; Generic ED Physician EXAMINATION: XR CHEST CLINICAL INFORMATION: Palpitations COMPARISON: 05/21/2020 TECHNIQUE: 2 views of the chest were obtained. FINDINGS: No significant abnormality is noted involving the heart, lungs, mediastinum, bony thorax or soft tissues. XR/XR chest 2V IMPRESSION: Unremarkable examination. Dictated By: Jaspal Farris MD Signed By: <Electronically signed by Jaspal Farris MD in OV> 11/20/2359 DD/ TD/TT: Manufacturing Engineer: [address] [address] XRay Report Signed Patient: Dior Subramanian MR#: [id number] [birth year] : 1955 Acct:[id number] Age/Sex: 68 / F ADM Date: 11/20/23 Loc: HO.ED Attending Dr: Ordering Physician: Generic ED Physician Date of Service: 11/20/23 Procedure(s): XR samia st 2V Accession Number(s): [id number] cc: Jerald Singh MD; Generic ED Physician EXAMINATION: XR CHEST CLINICAL INFORMATION: Palpitations COMPARISON: 05/21/2020 TECHNIQUE: 2 views of the chest were obtained. FINDINGS: No significant abnormality is noted involving the heart, lungs, mediastinum, bony thorax or soft tissues. XR/XR chest 2V IMPRESSION: Unremarkable examination. Dictated By: Jaspal Farris MD Signed By: <Electronically signed by Jaspal Farris MD in OV> 11/20/2359 DD/ TD/TT: Manufacturing Engineer: MAMMOGRAM DIGITAL BILATERAL SCREEN Reviewed date:01/25/2024 03:50:41 PM Interpretation:undefined Performing Lab: Notes/Report: undefined XR foot LT min 3V (Not yet r eviewed by provider) Interpretation: Performing Lab: Notes/Report: [address] [address] XRay Report Signed Patient: Andria Subramanian MR#: [id number] [birth year] : 1955 Acct:[id number] Age/Sex: 69 / F ADM Date: 10/21/24 Loc: HO.XRAY Attending Dr: Jerald Singh MD Ordering Physician: Jerald Singh MD Date of Service: 10/21/24 Procedure(s): XR foot LT min 3V Accession Number(s): [id number] cc: Jerald Singh MD EXAMINATION: XR FOOT, LEFT CLINICAL INFORMATION: LEFT FOOT PAIN COMPARISON: None available. TECHNIQUE: AP, lateral, and oblique views of the left foot. FINDINGS: Transverse fracture at the base of the fifth metacarpal. No significant displacement. No additional fracture or focal bony abnormality. No bone lesion. There is normal alignment. There is normal plantar arch. There is a moderate-sized plantar and tiny dorsal calcaneal spur. Mild tibiotalar joint degenerative changes. Mild lateral soft tissue swelling overlying the fracture site. Soft tissues otherwise normal. XR/XR foot LT min 3V IMPRESSION: Transverse fracture base of fifth metatarsal, no displacement. Electronically signed by: Johnny Shea MD 10/21/2024 11:43 AM EDT Dictated By: Johnny Shea MD Signed By: <Electronically signed by Johnny Shea MD in OV> 10/21/24 1143 DD/ 1055 TD/TT: 10/21/24 1104 Manufacturing Engineer: [place] [address] XRay Report Signed Patient: Dior Subramanian MR#: [id number] [birth year] : 1955 Acct:[id number] Age/Sex: 69 / F ADM Date: 10/21/24 Loc: [facility] Attending Dr: Jerald Singh MD Ordering Physician: Jerald Singh MD Date of Service: 10/21/24 Procedure(s): XR demetrio t LT min 3V Accession Number(s): [id number] cc: Jerald Singh MD EXAMINATION: XR FOOT, LEFT CLINICAL INFORMATION: LEFT FOOT PAIN COMPARISON: None available. TECHNIQUE: AP, lateral, and oblique views of the left foot. FINDINGS: Transverse fracture at the base of the fifth metacarpal. No significant displacement. No additional fractu re or focal bony abnormality. No bone lesion. There is normal alignment. There is normal plan tar arch. There is a moderate-sized plantar and tiny dorsal calcaneal spur. Mild tibiotalar join t degenerative changes. Mild lateral soft tissue swelling overlying the fracture site. Soft tissues otherwise normal. XR/XR foot LT min 3V IMPRESSION: Transverse fracture base of fifth metatarsal, no displacement. Electronically alvina d by: Johnny Shea MD 10/21/2024 11:43 AM EDT RP Dictated By: Johnny Shea MD Signed By: <Electronically signed by Johnny Shea MD in OV> 10/21/24 1143 DD/ 1055 TD/TT: 10/21/24 1104 Manufacturing Engineer: Reason For Referral Reason Consult and Treat Diagnosis 1 Left knee pain (M25. 562) Referral Organization Jerald Singh III, MD Referring Provider First Name Jerald Referring Provider Last Name Francisco Referring Provider [facility]ity [facility]erred Provider [facility], [facility] Referred Provider Specialty Orthopedic [facility] General Notes Shasta Chavez 04/09 10:37:54 AM > Referral faxed with Progress note. Patient was called and notified the referral was sent, to contact their office to schedule her appointment. Patient was advised to call Dr. Singh office to notify us of when the appointment is scheduled for.Zaynab Amber 06/27/2024 02:25:39 PM > Patient stated that she decided to go to a chiropactor that helped strengthen her knee and she is no longer having an issue and would like to close the referral to [facility]. Referral Priority Routine Reason new onset chest disc omfort evaluate and treatment Diagnosis 1 Chest discomfort (R0 7.89) Referral Organization Jerald Singh III, MD Referring Provider First Name Jerald Referring Provider Last Name Singh Referring Provider Speciality Internal edicine Referred Provider GARETT GONZALES Referred Provider Specialty Cardiology Referral Priority Routine Medications Medication SIG (Take, Route, Frequency, Duration) Notes Start Date End Date Status Atorvastatin Calcium 10 MG TAKE 1 TABLET ONCE DAILY Active Ventolin HFA 108 (90 Base) MCG/ACT 1 puff as needed Inhalation every 4 hrs 08/12/2024 Active metFORMIN HCl 500 MG TAKE 1 TABLET TWICE DAILY WITH MEALS Active Methenamine Hippurate 1 GM 1 tablet Oral ly Twice a day Active OneTouch Verio - as directed In Vitro Once a day Active Levothyroxine Sodium 88 MCG TAKE 1 TABLET DAILY Active Lisinopril 10 MG TAKE 1 TABLET ONCE DAILY Active Chlorthalidone 25 MG TAKE 1/2 TABLET DAILY Active Semaglutide(0.25 or 0.5MG/DOS) 2 MG/3ML as directed Subcutaneous Active Azelastine HCl 137 MCG/SPRAY 2 sprays in each nostril Nasally Twice a day 03/25/2022 Active Aspirin 81 81 MG 1 tablet Orally Once a day Active amLODIPine Besylate 5 MG TAKE 1 TABLET ONCE DAILY Active Immunizations Vaccine Route Administration Date Status Comme nts COVID- 19 Vaccine Unknown 09/12/2020 Administered Influenza, quad IM Intramuscular 04/23/2021 Administered Influenza, quad Unknown 07/05/2016 Administered Influenza, quad Unknown 04/13/2019 Administered COVID 19 Lauryn Unknown 09/12/2020 Administered Zostavax Unknown 08/27/2016 Administered Influenza, quad Unknown 04/08/2023 Administered COVID PFIZER Unknown 11/13/2021 Administered COVID PFIZER Unknown 05/03/2021 Administered COVID-19 Comirnaty Pfizer-BioNTech Unknown 04/08/2023 Administered PCV20 Unknown 06/23/2023 Administered RSV Adjuvant Unknown 04/08/2024 Administered Influenza High Dose Quadrivalent Unknown 04/16/2022 Administered COVID Pfizer Bivalent Unknown 04/16/2022 Administered Influenza High Dose Quadrivalent Unknown 04/04/2023 Administered COVID-19 Moderna SPIKEVAX Unknown 04/30/2024 Administer ed Fluzone High-Dose (HD-IIV3) Unknown 04/30/2024 Administered Tdap Unknown 05/31/2024 Administered Flu-IIv3 Unknown 04/30/2024 Administered Comirnaty Pfizer COVID-19 12+ Unknown 04/08/2023 Administered Social History Tobacco Use: Social History Observation Description Date Details (start date - stop date) Former Smoker NA - NA Sex Assigned At : Social History Observation Description Sex Assigned At Female Tobacco Control (Standard) Question Answer Notes Tobacco use: Former smoker How long has it been since you last smoked? Grea ter than 10 years Additional Findings: Tobacco non-user Ex-cigaret te smoker AUDIT-C (Standard) Question Answer Notes Did you have a drink containing alcohol in the p ast year? No Points 0 Interpretation Negative Problems Problem Type SNOMED Code ICD Code Onset Dates Problem Status W/U Status Risk Notes Problem 6156678 Former smoker (Z87.891) Active confirmed She seems highl y motivated not to smoke. We discussed a plan to prevent relapse in times of stress and illness. Problem 07053026 Bronchitis (J40) Active confirmed He has an appar ent viral syndrome with bronchitis. She is using an expectorant and a cough suppressant. She has recently completed courses of 2 antibiotics. We discussed the at home treatment of the illness. She is going to report every 48 hours by telephone. Problem Annual health maintenance examination (95534861) Annual physical exam (Z00.00) Active confirmed Problem Vitamin D deficiency (93659888) Vitamin D deficiency, unspecified (E55.9) Active confirmed She will contin ue to use her supplement. Problem 523227897 Mixed hyperlipidemia (E78.2) Active confirmed Her lipids have been controlled. Comprehensive blood work with a fasting lipid profile were ordered today. No change in her medications was necessary. She has gained 10 pounds since her last visit. Problem 12586555 Other chronic pain (G89.29) Active confirmed Problem 623970752 Obesity (BMI 30-39.9) (E66.9) Active confirmed We have reviewe d her weight loss strategy and nutrition. She says she has not gained further weight. She was given an appointment to return to the office to measure her vital signs and weight. Problem 37507862 Essential hypertension (I10) Active confirmed Her blood press ure is within normal limits at this time and no change in her therapy as needed. I recommended aggressive sodium restriction weight loss Problem 53658060 Obstructive sleep apnea (G47.33) Active confirmed She has been compliant with therapy and no change was made. She is sleeping well at night and denies any daytime somnolence. Problem 567135378 Chest discomfort (R07.89) Active confirmed Problem 840897308 Primary osteoarthritis involving multiple joints (M15.0) Active confirmed She has been referred back to her orthopedic surgeon. The high pressure cleaner is evaluating her dry eyes and mouth. Problem 82606670 Viral bronchitis (J20.8) Active confirmed We had a discussion about the expected returns and antipyretics and cough suppressants today. She will use a product with dextromethorphan. Problem 12354269 PTSD (post-traumatic stress disorder) (F43.10) Active confirmed Problem 738394358 Seasonal allergies (J30.2) Active confirmed She experienced moderate allergies during the recent heavy pollen season. These have now resolved. She relied upon iibb-egz-fmefgze oral medication heavily. 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 No change in her medications. Was necessary. Problem 312462222 Lymphedema (I89.0) Active confirmed She is interest ed in obtaining referrals for manual lymphatic drainage. She has been told in the past that she has total body lymphedema. She was wearing upper body and lower body compressive garments today. She is interested in obtaining equipment that will compress her trunk, upper extremities and lower extremities. I suggested she discuss this with the [employer] makes equipment as well as her insurance, to see if they will cover on examination today, I did not detect any obvious lymphedema. Problem 29662281 Age-related cataract of both eyes, unspecified age-related cataract type (H25.9) Active confirmed I have seen and examined this patient and taken her history. I have reviewed her blood work. There are no contraindications to cataract surgery. She has medical clearance for both procedures. The benefit is. The risk is small. Problem 651629248 Type 2 diabetes mellitus without complication, without long-term current use of insulin (E11.9) Active confirmed Her fasting glucose is 110. She has lost 10 pounds. We discussed diet and nutrition today. We reviewed her diabetic diet. We made a plan to lose weight. No change in her medications was necessary. Problem Hypothyroidism (51062731) Hypothyroidism, unspecified type (E03.9) Active confirmed She is clinical ly euthyroid. Thyroid function tests have been ordered. Problem 87746765 Right shoulder pain, unspecified chronicity (M25.511) Active confirmed The right shoul vonnie is painful but not worse. She declined an offer of physical therapy. Problem Disorder due to type 2 diabetes mellitus (287086746) Type 2 diabetes mellitus with complication, without long-term current use of insulin (E11.8) Active confirmed She has gain ed 10 pounds since her last visit. Her hemoglobin A1c is 6.1. No change in her medications was made. We reviewed her weight loss strategy at length. Problem 215282398 Cataract, unspecified cataract type, unspecified laterality (H26.9) Active confirmed There is no contraindication to cataract surgery. She is given medical clearance today for cataract extraction and surgery. The benefit is greater than her risk is small. Problem 654630995 Adenomatous polyp (D36.9) Active confirmed She will sunshine nue to have colonoscopies of 5 year intervals at the [facility] Problem 14231513 Exertional asthma (J45.990) Active confirmed She was breathi ng comfortably today. She says she had some exertional wheezing during the pollen season but this has improved. No change in her therapy was needed today. Problem 032936171 Diabetic mononeuropathy associated with type 2 diabetes mellitus (E11.41) Active confirmed The complaining of numbness in the right foot is likely a manifestation of diabetic neuropathy. Conference of blood work was done to evaluate the complaint which has been present for several weeks. She was given an appointment to come to the office evaluate her vascular system. Vital Signs Heart Rate 64 /min 10/21/2024 Temperature 98.4 degrees Fahrenheit 10/21/2024 Blood pressure diastolic 63 mm Hg 10/21/2024 Height 66 in 10/21/2024 Blood pressure systolic 139 mm Hg 10/21/2024 Weight 196 lbs 10/21/2024 BMI 31.63 kg/m2 10/21/2024 Encounters Encounter Location Date Provider Diagnosis Jerald Singh III, MD [address] [place] [address] [place] [address] 10/21/2024 Jerald Singh UTI (urinary tract infection), uncomplicated N39.0 ; Annual physical exam Z00.00 ; Chest discomfort R07.89 ; Left foot pain M79.672 ; Mixed hyperlipidemia E78.2 ; Hypothyroidism, unspecified type E03.9 and Primary osteoarthritis involving multiple joints M15.0 Jerald Singh III, MD [address] [place] [address] [place] [address] 12/20/2023 Jerald Singh Type 2 diabetes jason itus without complication, without long-term current use of insulin E11.9 ; Mixed hyperlipidemia E78.2 ; Hypothyroidism, unspecified type E03.9 ; Seasonal allergies J30.2 ; Exertional asthma J45.990 ; Obstructive sleep apnea G47.33 ; History of depression Z86.59 ; Former smoker Z87.891 and Obesity (BMI 30-39.9) E66.9 Jerald Singh III, MD [address] [place] [address] [place] [address] 01/19/2024 Jerald Singh UTI (urinary tract infection), uncomplicated N39.0 ; Mixed hyperlipidemia E78.2 ; Type 2 diabetes mellitus with complication, without long-term current use of insulin E11.8 ; Hypothyroidism, unspecified type E03.9 ; Seasonal allergies J30.2 ; Exertional asthma J45.990 ; History of depression Z86.59 ; Obstructive sleep apnea G47.33 ; Essential hypertension I10 ; Former smoker Z87.891 and Obesity (BMI 30-39.9) E66.9 Jerald Singh III, MD [address] [place] [address] [place] [address] 04/02/2024 Jerald Singh UTI (urinary tract infection), uncomplicated N39.0 ; Type 2 diabetes mellitus with complication, without long-term current use of insulin E11.8 ; Mixed hyperlipidemia E78.2 ; Hypothyroidism, unspecified type E03.9 ; Seasonal allergies J30.2 ; Exertional asthma J45.990 and Former smoker Z87.891 Jerald Singh III, MD [address] [place] [address] [place] [address] 07/16/2024 Jerald Singh UTI (urinary tract infection), uncomplicated N39.0 ; Type 2 diabetes mellitus with complication, without long-term current use of insulin E11.8 ; Mixed hyperlipidemia E78.2 ; Obstructive sleep apnea G47.33 ; Exertional asthma J45.990 ; Former smoker Z87.891 ; History of depression Z86.59 ; Hypothyroidism, unspecified type E03.9 and Seasonal allergies J30.2 Jerald Singh III, MD [address] [place] [address] [place] [address] 08/12/2024 Jerald Singh UTI (urinary tract infection), uncomplicated N39.0 ; Bronchitis J40 ; Mixed hyperlipidemia E78.2 ; Type 2 diabetes mellitus with complication, without long-term current use of insulin E11.8 ; Hypothyroidism, unspecified type E03.9 ; Seasonal allergies J30.2 and Former smoker Z87.891 Jerald Singh III, MD [address] [place] [address] [place] [address] 08/16/2024 Jerald Singh UTI (urinary tract infection), uncomplicated N39.0 ; Viral bronchitis J20.8 ; Obstructive sleep apnea G47.33 ; Former smoker Z87.891 ; Exertional asthma J45.990 and History of depression Z86.59 Jerald Singh III, MD [address] [place] [address] [place] [address] 11/29/2023 Jerald Singh III, MD [address] [place] [address] [place] [address] 04/05/2024 Jerald Singh III, MD [address] [place] [address] [place] [address] 04/05/2024 Jerald Singh III, MD [address] [place] [address] [place] [address] 07/12/2024 Jerald Singh III, MD [address] [place] [address] [place] [address] 07/12/2024 Jerald Singh Assessments Encounter Date Diagnosis (ICD Code) Assessment Notes Treat ment Notes Treatment Clinical Notes 10/21/2024 UTI (urinary tract infection), uncomplicated (ICD-10 - N39.0) 12/20/2023 Mixed hyperlipidemia (ICD-10 - E78.2) His fasting lipid profile will be done prior to her next visit. No change in her mmedications was made. 12/20/2023 Type 2 diabetes mellitus without complication, without long-term current use of insulin (ICD-10 - E11.9) Her fasting glucose is 110. She has lost 10 pounds. We discussed diet and nutrition today. We reviewed her diabetic diet. We made a plan to lose weight. No change in her medications was necessary. 01/19/2024 Mixed hyperlipidemia (ICD-10 - E78.2) His fasting lipid profile will be done prior to her next visit. No change in her mmedications was made. 01/19/2024 UTI (urinary tract infection), uncomplicated (ICD-10 - N39.0) She was given a prescription for Bactrim double strength. Call in 72 hours to report on her progress. 04/02/2024 Type 2 diabetes mellitus with complication, without long-term current use of insulin (ICD-10 - E11.8) Comprehensive blood work was ordered with a hemoglobin A1c and microalbumin. No change in her medications was made. 04/02/2024 UTI (urinary tract infection), uncomplicated (ICD-10 - N39.0) This problem has resolved 07/16/2024 Type 2 diabetes mellitus with complication, without long-term current use of insulin (ICD-10 - E11.8) She has gained 10 pounds since her last visit. Her hemoglobin A1c is 6.1. No change in her medications was made. We reviewed her weight loss strategy at length. 07/16/2024 UTI (urinary tract infection), uncomplicated (ICD-10 - N39.0) She was given a prescription for double strength Bactrim on July 12, 2024 for significant symptoms of urinary tract infection. These symptoms have now resolved and she is well. She completed the medication and had no side effects. 08/12/2024 Bronchitis (ICD-10 - J40) He has an apparent viral syndrome with bronchitis. She is using an expectorant and a cough suppressant. She has recently completed courses of 2 antibiotics. We discussed the at home treatment of the illness. She is going to report every 48 hours by telephone. 08/12/2024 UTI (urinary tract infection), uncomplicated (ICD-10 - N39.0) This has completely resolved with Macrobid given to her by the urologist. She has completed the antibiotic and is now asymptomatic. 08/16/2024 Viral bronchitis (ICD-10 - J20.8) We had a discussion about the expected returns and antipyretics and cough suppressants today. She will use a product with dextromethorphan. 08/16/2024 UTI (urinary tract infection), uncomplicated (ICD-10 - N39.0) This has completely resolved with Macrobid given to her by the urologist. She has completed the antibiotic and is now asymptomatic. 10/21/2024 Annual physical exam (ICD-10 - Z00.00) 12/20/2023 Hypothyroidism, unspecified type (ICD-10 - E03.9) She is clinically euthyroid. Thyroid function tests have been ordered. 01/19/2024 Type 2 diabetes mellitus with complication, without long-term current use of insulin (ICD-10 - E11.8) I have ordered a hemoglobin A1c. Her fasting glucoses 135. I recommended aggressive weight loss. 04/02/2024 Mixed hyperlipidemia (ICD-10 - E78.2) Her lipids have been controlled. Comprehensive blood work with a fasting lipid profile were ordered today. No change in her medications was necessary. She has lost 11 pounds since her last visit. 07/16/2024 Mixed hyperlipidemia (ICD-10 - E78.2) Her lipids have been controlled. Comprehensive blood work with a fasting lipid profile were ordered today. No change in her medications was necessary. She has gained 10 pounds since her last visit. 08/12/2024 Mixed hyperlipidemia (ICD-10 - E78.2) Her lipids have been controlled. Comprehensive blood work with a fasting lipid profile were ordered today. No change in her medications was necessary. She has gained 10 pounds since her last visit. 08/16/2024 Obstructive sleep apnea (ICD-10 - G47.33) She has been compliant with therapy and no change was made. She is sleeping well at night and denies any daytime somnolence. 10/21/2024 Chest discomfort (ICD-10 - R07.89) 12/20/2023 Seasonal allergies (ICD-10 - J30.2) She experienced moderate allergies during the recent heavy pollen season. These have now resolved. She relied upon xroh-llc-fkmlxvw oral medication heavily. 01/19/2024 Hypothyroidism, unspecified type (ICD-10 - E03.9) She is clinically euthyroid. Thyroid function tests have been ordered. 04/02/2024 Hypothyroidism, unspecified type (ICD-10 - E03.9) She is clinically euthyroid. Thyroid function tests have been ordered. 07/16/2024 Obstructive sleep apnea (ICD-10 - G47.33) She has been compliant with therapy and no change was made. She is sleeping well at night and denies any daytime somnolence. 08/12/2024 Type 2 diabetes mellitus with complication, without long-term current use of insulin (ICD-10 - E11.8) She has gained 10 pounds since her last visit. Her hemoglobin A1c is 6.1. No change in her medications was made. We reviewed her weight loss strategy at length. 08/16/2024 Former smoker (ICD-1 0 - Z87.891) She seems highly motivated not to smoke. We discussed a plan to prevent relapse in times of stress and illness. 10/21/2024 Left foot pain (ICD-10 - M79.672) 12/20/2023 Exertional asthma (ICD-10 - J45.990) She was breathing comfortably today. She says she had some exertional wheezing during the pollen season but this has improved. No change in her therapy was needed today. 01/19/2024 Seasonal allergies (ICD-10 - J30.2) She experienced moderate allergies during the recent heavy pollen season. These have now resolved. She relied upon jnba-hoi-pejqpaa oral medication heavily. 04/02/2024 Seasonal allergies (ICD-10 - J30.2) She experienced moderate allergies during the recent heavy pollen season. These have now resolved. She relied upon upzo-erz-fdyjrxu oral medication heavily. 07/16/2024 Exertional asthma (ICD-10 - J45.990) She was breathing comfortably today. She says she had some exertional wheezing during the pollen season but this has improved. No change in her therapy was needed today. 08/12/2024 Hypothyroidism, unspecified type (ICD-10 - E03.9) She is clinically euthyroid. Thyroid function tests have been ordered. 08/16/2024 Exertional asthma (ICD-10 - J45.990) She was breathing comfortably today. She says she had some exertional wheezing during the pollen season but this has improved. No change in her therapy was needed today. 10/21/2024 Mixed hyperlipidemia (ICD-10 - E78.2) 12/20/2023 Obstructive sleep apnea (ICD-10 - G47.33) She has been compliant with therapy and no change was made. She is sleeping well at night and denies any daytime somnolence. 01/19/2024 Exertional asthma (ICD-10 - J45.990) She was breathing comfortably today. She says she had some exertional wheezing during the pollen season but this has improved. No change in her therapy was needed today. 04/02/2024 Exertional asthma (ICD-10 - J45.990) She was breathing comfortably today. She says she had some exertional wheezing during the pollen season but this has improved. No change in her therapy was needed today. 07/16/2024 Former smoker (ICD-1 0 - Z87.891) She seems highly motivated not to smoke. We discussed a plan to prevent relapse in times of stress and illness. 08/12/2024 Seasonal allergies (ICD-10 - J30.2) She experienced moderate allergies during the recent heavy pollen season. These have now resolved. She relied upon szma-zof-fbwawkf oral medication heavily. 08/16/2024 History of depressio n (ICD-10 - Z86.59) Her depression continues under good control without relapse. No change in her medications. Was necessary. 10/21/2024 Hypothyroidism, unspecified type (ICD-10 - E03.9) 12/20/2023 History of depressio n (ICD-10 - Z86.59) Her depression continues under good control without relapse. No change in her medications. Was necessary. 01/19/2024 History of depressio n (ICD-10 - Z86.59) Her depression continues under good control without relapse. No change in her medications. Was necessary. 04/02/2024 Former smoker (ICD-1 0 - Z87.891) She seems highly motivated not to smoke. We discussed a plan to prevent relapse in times of stress and illness. 07/16/2024 History of depressio n (ICD-10 - Z86.59) Her depression continues under good control without relapse. No change in her medications. Was necessary. 08/12/2024 Former smoker (ICD-1 0 - Z87.891) She seems highly motivated not to smoke. We discussed a plan to prevent relapse in times of stress and illness. 10/21/2024 Primary osteoarthritis involving multiple joints (ICD-10 - M15.0) 12/20/2023 Former smoker (ICD-1 0 - Z87.891) She seems highly motivated not to smoke. We discussed a plan to prevent relapse in times of stress and illness. 01/19/2024 Obstructive sleep apnea (ICD-10 - G47.33) She has been compliant with therapy and no change was made. She is sleeping well at night and denies any daytime somnolence. 07/16/2024 Hypothyroidism, unspecified type (ICD-10 - E03.9) She is clinically euthyroid. Thyroid function tests have been ordered. 12/20/2023 Obesity (BMI 30-39.9 ) (ICD-10 - E66.9) We have reviewed her weight loss strategy and nutrition. She has lost 10 pounds since her last visit. 01/19/2024 Essential hypertension (ICD-10 - I10) Her blood pressure is within normal limits at this time and no change in her therapy as needed. I recommended aggressive sodium restriction weight loss 07/16/2024 Seasonal allergies (ICD-10 - J30.2) She experienced moderate allergies during the recent heavy pollen season. These have now resolved. She relied upon kjoc-qbt-ynfhgad oral medication heavily. 01/19/2024 Former smoker (ICD-1 0 - Z87.891) She seems highly motivated not to smoke. We discussed a plan to prevent relapse in times of stress and illness. 01/19/2024 Obesity (BMI 30-39.9 ) (ICD-10 - E66.9) We have reviewed her weight loss strategy and nutrition. She says she has not gained further weight. She was given an appointment to return to the office to measure her vital signs and weight. Plan Of Treatment Pending Test Test Name Order Date PROFILE, FASTING (COMPREHENSIVE METABOLI C) 10/22/2018 PROFILE, FASTING (COMPREHENSIVE METABOLI C) 10/12/2022 PROFILE, FASTING (COMPREHENSIVE METABOLI C) 02/12/2020 PROFILE, FASTING (COMPREHENSIVE METABOLI C) 10/21/2024 PROFILE, FASTING (COMPREHENSIVE METABOLI C) 12/05/2018 PROFILE, FASTING (COMPREHENSIVE METABOLI C) 02/06/2019 PROFILE, FASTING (COMPREHENSIVE METABOLI C) 12/20/2023 PROFILE, FASTING (COMPREHENSIVE METABOLI C) 12/21/2020 PROFILE, FASTING (COMPREHENSIVE METABOLI C) 08/18/2022 PROFILE, FASTING (COMPREHENSIVE METABOLI C) 08/23/2021 PROFILE, FASTING (COMPREHENSIVE METABOLI C) 04/02/2024 PROFILE, FASTING (COMPREHENSIVE METABOLI C) 04/23/2021 PROFILE, FASTING (COMPREHENSIVE METABOLI C) 04/11/2023 PROFILE, FASTING (COMPREHENSIVE METABOLI C) 05/15/2020 PROFILE, FASTING (COMPREHENSIVE METABOLI C) 07/13/2018 PROFILE, RANDOM (COMPREHENSIVE METABOLIC ) 12/10/2018 PROFILE, RANDOM (COMPREHENSIVE METABOLIC ) 03/26/2019 PROFILE, RANDOM (COMPREHENSIVE METABOLIC ) 12/26/2018 PROFILE, RANDOM (COMPREHENSIVE METABOLIC ) 06/14/2023 HEMOGLOBIN A1C (GLYCOHEMOGLOBIN) 019 HEMOGLOBIN A1C (GLYCOHEMOGLOBIN) 019 HEMOGLOBIN A1C (GLYCOHEMOGLOBIN) 023 HEMOGLOBIN A1C (GLYCOHEMOGLOBIN) 019 HEMOGLOBIN A1C (GLYCOHEMOGLOBIN) 021 HEMOGLOBIN A1C (GLYCOHEMOGLOBIN) 021 HEMOGLOBIN A1C (GLYCOHEMOGLOBIN) 021 HEMOGLOBIN A1C (GLYCOHEMOGLOBIN) 023 URIC ACID 07/13/2018 AMYLASE 03/26/2019 LIPID PANEL 10/12/2022 LIPID PANEL 02/12/2020 LIPID PANEL 10/22/2018 LIPID PANEL 07/13/2018 LIPID PANEL 02/06/2019 LIPID PANEL 08/18/2022 LIPID PANEL 12/05/2018 LIPID PANEL 04/11/2023 LIPID PANEL 05/15/2020 LIPID PANEL 12/21/2020 LIPID PANEL 10/27/2020 FREE T4 (FT4) 05/15/2020 FREE T4 (FT4) 12/21/2020 FREE T4 (FT4) 10/22/2018 FREE T4 (FT4) 12/26/2018 FREE T4 (FT4) 08/23/2021 FREE T4 (FT4) 02/06/2019 TSH (THYROID STIMULATING HORMONE) 2019 TSH (THYROID STIMULATING HORMONE) 2020 TSH (THYROID STIMULATING HORMONE) 2024 TSH (THYROID STIMULATING HORMONE) 2018 TSH (THYROID STIMULATING HORMONE) 2023 TSH (THYROID STIMULATING HORMONE) 2018 TSH (THYROID STIMULATING HORMONE) 2018 TSH (THYROID STIMULATING HORMONE) 2021 TSH (THYROID STIMULATING HORMONE) 2018 FERRITIN 12/26/2018 FERRITIN 05/15/2020 CRP 10/21/2024 RHEUMATOID FACTOR (RA, RF) 10/21/2024 MICROALBUMIN, RANDOM 04/11/2023 MICROALBUMIN, RANDOM 06/14/2023 MICROALBUMIN, RANDOM 10/22/2018 CBC w DIFF 04/23/2021 CBC w DIFF 10/27/2020 CBC w DIFF 08/23/2021 CBC w DIFF 10/22/2018 CBC w DIFF 02/06/2019 CBC w DIFF 12/26/2018 CBC w DIFF 04/11/2023 CBC w DIFF 12/10/2018 CBC w DIFF 12/21/2020 CBC w DIFF 10/12/2022 CBC w DIFF 02/12/2020 CBC w DIFF 05/15/2020 CBC w DIFF 03/26/2019 CBC w DIFF 07/13/2018 CBC w DIFF 08/18/2022 CBC w DIFF 12/05/2018 CBC w DIFF 06/14/2023 CBC w DIFF 10/21/2024 SED RATE (ESR) 03/26/2019 XR FOOT LT 10/21/2024 PEBBLES (WOJCIECH) 10/21/2024 VITAMIN D 25-OH TOTAL 10/27/2020 VITAMIN D 25-OH TOTAL 04/11/2023 CBC WITH AUTO DIFF 04/02/2024 CBC WITH AUTO DIFF 12/20/2023 Lipid Panel 04/02/2024 Lipid Panel 12/20/2023 Lipid Panel 06/14/2023 Lipid Panel 04/23/2021 Lipid Panel 10/21/2024 Lipid Panel 08/23/2021 Free T4 (Free Thyroxine) 12/20/2023 Free T4 (Free Thyroxine) 10/21/2024 Microalbumin, Random 04/23/2021 XR foot LT min 3V 10/21/2024 Hemoglobin A1c 04/02/2024 Hemoglobin A1c 06/14/2023 Hemoglobin A1c 12/20/2023 Next Appt Details Provider Name:Jerald Singh, 11/05/2024 03:30:00 PM, [address] [place] [address] [address], [place], [address], Provider Name:Jerald Singh, 10/22/2025 09:30:00 AM, [address] [place] [address] [address], [place], [address], Insurance Providers Payer Name Payer Address Payer Phone Subscriber Number Group Number Insured Name Patient Relationship to Insured Coverage Start Date Coverage End Date MEDICARE NGS [address] [place] [phone] [id number] Andria Subramanian Self - patient is the insured [facility] [address] [place], [place] [id number] Andria Subramanian Self - patient is the insured Medical (General) History Medical History History ICD Code Type 2 diabetes mellitus without complic ations E11.9 Hypothyroid E03.9 Vitamin D deficiency, unspecified E55.9 ADD (attention deficit disorder) F98.8 Seasonal allergies J30.2 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 Excision 2 005 Nasal surgery 1989 right total knee replacement 2016 left total knee replaacement 2012 Spur surgery 2002 left breast tumor, benign cyst 1974 breast tumor right, benign 1974 Hospitalization History Reason Date(Month/Year) No history NaSal turbinate resection colonoscopy, [facility] 2 018 colonoscopy, one hyperplastic polyp 2014 right knee replacement, [facility] total dental extractions
--- OUTSIDE RECORDS SUMMARY | 2024-10-21 12:31 | XMS_ITS | Clinical Summary ---
Author Organization [address] [facility] Address [address] [place] [address] Phone Care Team Providers Care Diversity Manager Name Role Phone Unavailable Primary Care Provider Unavailabl e Encounters Date Type Department Care Team Description 08/02/2024 Lab Requisition [facility] - Main Lab [address] [facility] [place] [address] Felix Santos MD Dysuria from Last 3 Months Social History Tobacco Use Types Packs/Day Years Used Date Smoking Tobacco: Never Assessed Comments Unknown Sex and Gender Information Value Date Recorded Sex Assigned at Not on file Legal Sex Female 8:22 PM EST Gender Identity Not on file Sexual Orientation Not on file Plan of Treatment Health Maintenance Due Date Last Done Comments Breast Cancer Screening 1955 DTaP,Tdap,and Td Vaccines (1 - Tdap) 1974 Pneumococcal Vaccine: 50+ Ye ars (1 of 1 - PCV) 2005 Zoster Vaccines (1 of 2) 2005 Colorectal Cancer Screening: Colonoscopy 08/03/2023 Depression Screening 08/03/2023 Falls Risk Assessment 08/03/2023 Hepatitis C Screening 08/03/2023 Medicare Annual Wellness Visit 08/03/2023 Osteoporosis Screening (Bone Density Screening) 08/03/2023 Social Influencers of Health Screening 08/03/2023 COVID-19 Vaccine ( - 2023-2 5 season) 2024 Influenza Vaccine (Season Ended) 2025 RSV Immunization Adult Patie nts (1 - 1-dose 75+ series) 2030 HIB Vaccines Aged Out No longer eligi ble based on patient's age to complete this topic HPV Vaccines Aged Out No longer eligi ble based on patient's age to complete this topic Hepatitis A Vaccines Aged Out No long er eligible based on patient's age to complete this topic Hepatitis B Vaccines Aged Out No long er eligible based on patient's age to complete this topic IPV Vaccines Aged Out No longer eligi ble based on patient's age to complete this topic MMR Vaccines Aged Out No longer eligi ble based on patient's age to complete this topic Meningococcal ACWY Vaccine Aged Out N o longer eligible based on patient's age to complete this topic Meningococcal B Vaccine Aged Out No l onger eligible based on patient's age to complete this topic RSV Immunization Patients Un vonnie 20 months Aged Out No longer eligible b ased on patient's age to complete this topic Varicella Vaccines Aged Out No longer eligible based on patient's age to complete this topic Procedures Procedure Name Priority Date/Time Associated Diagnosis Comments CULTURE URINE Routine 08/02/2024 12:00 AM EST Dysuria from Last 3 Months Results * Culture urine (08/02/2024 12:00 AM EST) Culture, Urine 10,000-49,000 CFU/mL Mixed urogenital danika, no uropathogens present. Suggest repeat specimen if clinically indicated. 08/03/2024 1:55 PM EST [facility] Urine Urine specimen from urethra / Unknown 08/02/2024 08/02/2024 6:08 PM EST Felix Santos MD LAB MICROBIOLOGY - GENERAL ORDER LENA Final Result [facility] [address] [place] [address], from Last 3 Months Insurance MEDICARE [facility]
--- OUTSIDE RECORDS SUMMARY | 2024-10-21 12:31 | XMS_ITS ---
Author Organization Jerald Singh III, MD Address [address] [place] [address] Care Team Providers Care Warehouse Hand Name Role Phone Jerald Singh Primary Care Provider [phone] Allergies Allergen (clinical drug ingredient) Drug/Non Drug [...] 0.2 - 1.3 BLD Negative Negative - Reason For Referral Reason new onset chest disc omfort evaluate and treatment Diagnosis 1 Chest discomfort (R0 7.89) Referral Organization Jerald Singh III, MD Referring Provider First Name Jerald Referring Provider Last Name Francisco Referring Provider Speciality Internal M edicine Referred Provider GARETT GONZALES Referred Provider Specialty Cardiology Referral Priority Routine REASON FOR VISIT Annual Exam Medications Medication SIG (Take, Route, Frequency, Duration) Notes Start Date End Date Status Methenamine Hippurate 1 GM 1 tablet Oral ly Twice a day Active Chlorthalidone 25 MG TAKE 1/2 TABLET DAILY Active Semaglutide(0.25 or 0.5MG/DOS) 2 MG/3ML as directed Subcutaneous Active Azelastine HCl 137 MCG/SPRAY 2 sprays in each nostril Nasally Twice a day 03/25/2022 Active Aspirin 81 81 MG 1 tablet Orally Once a day Active Atorvastatin Calcium 10 MG TAKE 1 TABLET ONCE DAILY Active Ventolin HFA 108 (90 Base) MCG/ACT 1 puff as needed Inhalation every 4 hrs 08/12/2024 Active OneTouch Verio - as directed In Vitro Once a day Active Levothyroxine Sodium 88 MCG TAKE 1 TABLET DAILY Active Lisinopril 10 MG TAKE 1 TABLET ONCE DAILY Active metFORMIN HCl 500 MG TAKE 1 TABLET TWICE DAILY WITH MEALS Active amLODIPine Besylate 5 MG TAKE 1 TABLET ONCE DAILY Active Social History Tobacco Use: Social History Observation [...] ast year? No Points 0 Interpretation Negative Vital Signs Temperature 98.4 degrees Fahrenheit 10/22/19 25 Blood pressure systolic 139 mm Hg 10/22/19 25 Blood pressure diastolic 63 mm Hg 025 Heart Rate 64 /min 10/21/2024 Height 66 in 10/21/2024 Weight 196 lbs 10/21/2024 BMI 31.63 kg/m2 10/21/2024 Encounters Encounter Location Date Provider Diagnosis Jerald Singh III, MD [address] [place] [address] [place] [address] 10/21/2024 Jerald Singh UTI (urinary tract infection), uncomplicated N39.0 ; Annual physical exam Z00.00 ; Chest discomfort R07.89 ; Left foot pain M79.672 ; Mixed hyperlipidemia E78.2 ; Hypothyroidism, unspecified type E03.9 and Primary osteoarthritis involving multiple joints M15.0 Assessments Encounter Date Diagnosis (ICD Code) Assessment Notes Treat ment Notes Treatment Clinical Notes 10/21/2024 UTI (urinary tract infection), uncomplicated (ICD-10 - N39.0) 10/21/2024 Annual physical exam (ICD-10 - Z00.00) 10/21/2024 Chest discomfort (ICD-10 - R07.89) 10/21/2024 Left foot pain (ICD-10 - M79.672) 10/21/2024 Mixed hyperlipidemia (ICD-10 - E78.2) 10/21/2024 Hypothyroidism, unspecified type (ICD-10 - E03.9) 10/21/2024 Primary osteoarthritis involving multiple joints (ICD-10 - M15.0) Plan Of Treatment Medication Medication Name Sig Start Date Stop Date Notes Methenamine Hippurate 1 GM 1 tablet Orally Twice a day Chlorthalidone 25 MG TAKE 1/2 TABLET DAILY Semaglutide(0.25 or 0.5MG/DO S) 2 MG/3ML as directed Subcutaneous Azelastine HCl 137 MCG/SPRAY 2 sprays in each nostril Nasally Twice a day 03/25/2022 Aspirin 81 81 MG 1 tablet Orally Once a day Atorvastatin Calcium 10 MG TAKE 1 TABLET ONCE DAILY Ventolin HFA 108 (90 Base) MCG/ACT 1 puff as needed Inhalation every 4 hrs 08/12/2024 OneTouch Verio - as directed In Vitro Once a day Levothyroxine Sodium 88 MCG TAKE 1 TABLET DAILY Lisinopril 10 MG TAKE 1 TABLET ONCE DAILY metFORMIN HCl 500 MG TAKE 1 TABLET TWICE DAILY WITH MEALS amLODIPine Besylate 5 MG TAKE 1 TABLET ONCE DAILY Pending Test Test Name Order Date PROFILE, FASTING (COMPREHENSIVE METABOLI C) 10/21/2024 TSH (THYROID STIMULATING HORMONE) 2024 CRP 10/21/2024 RHEUMATOID FACTOR (RA, RF) 10/21/2024 CBC w DIFF 10/21/2024 XR FOOT LT 10/21/2024 PEBBLES (WOJCIECH) 10/21/2024 Lipid Panel 10/21/2024 Free T4 (Free Thyroxine) 10/21/2024 Referrals Referral Date Details 10/21/2024 10/21/2024, faisal golden chest discomfort evaluate and treatment, GARETT GONZALES Next Appt Details Follow Up: after testing, Re ason: OV review labs/x ray Provider Name:Jerald Singh, 11/05/2024 03:30:00 PM, [address] [place] [address] [address], [place], [address], Provider Name:Jerald Singh, 10/22/2025 09:30:00 AM, [address] [place] [address] [address], [place], [address], Progress Notes * Andria SUBRAMANIANDOB: [birth year] (69 yo F)Acc No.[id number]:10/21/2024 Progress Notes Patient:?Andria SUBRAMANIAN Provider:?Jearld Singh MD :[id number]???Age:69 Y???Sex:Female D ate:10/21/2024 Address:[address] [place] [address] , [place], [id number] Subjective: * Chief Complaints: * ???1. Annual Exam. * HPI: ???Depression Screening:?PHQ-9?Little interest or pleasure in doing things?Not at all ?Feeling down, depressed, or hopeless?Not at all ?Trouble falling or staying asleep, or sleeping too much?Not at all ?Feeling tired or having little energy?Not at all ?Poor appetite or overeating?Not at all ?Feeling bad about yourself or that you are a failure, or have let yourself or your family down?Not at all ?Trouble concentrating on things, such as reading the newspaper or watching television?Not at all ?Moving or speaking so slowly that other people could have noticed; or the opposite, being so fidgety or restless that you have been moving around a lot more than usual?Not at all ?Thoughts that you would be better off or of hurting yourself in some way?Not at all ?Total Score?0 ???COVID-19 Screening:?pretty good, 09/03,? 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 had bmd, dm? 110,? 1)? [facility] does heart scan? will pay privately? to see patty, )2020 saw rheum pos pebbles, somethings brewing ra or lupus or something,? ?nothing has changed, wears glove in cold,. ?Questions?Have you had any new onset fever, chills, cough, congestion, sore throat, shortness of breath, muscle aches??No ???Fall Risk Screening:?Fall History?Have you had any falls with injury in the past year??No ?Have you had two or more falls in the past year??No ?Fall Risk Assessment:?No falls in the past year ???SDOH Questions:?SDOH Questions?In the past year have you been worried about losing your housing??No ?In the past year have you or any family members you live with been unable to get any of the following when it was really needed? Check all that apply:?None * ROS:?General/Constitutional:?pain?only normal aches and pains.?Chills?denies.?Fatigue?admits.?Fever?denies.?ENT:?Decreased hearing?denies.?Respiratory:?Cough?denies.?Cardiovascular:?Chest pain with exertion?denies.?Dyspnea on exertion?denies.?Shortness of breath?denies.?Gastrointestinal:?Constipation?denies.?Decreased appetite?denies.?Diarrhea?denies.?Heartburn?denies.?Nausea?denies.?Rectal bleeding?denies.?Vomiting?denies.?Hematology:?bruising?denies.?petechiae?denies.?Swollen glands?none have been noted.?Genitourinary:?Frequent urination?denies.?Musculoskeletal:?Muscle aches?denies.?Painful joints?denies.?Sciatica?denies.?Weakness?denies.?Skin:?Itching?denies.?Rash?denies.?Skin lesion(s)?denies.?Neurologic:?Difficulty speaking?denies.?Dizziness?denies.?Headache?denies.?Low back pain?denies.?Psychiatric:?Depressed mood?denies.? * Medical History:?Type 2 diab etes mellitus without complications, Hypothyroid, Vitamin D deficiency, unspecified, ADD (attention deficit disorder), Seasonal allergies, Sterling's palsy, Cataracts, Attention deficit disorder, Seasonal allergies, Exertional asthma, Obstructive sleep apnea, Depression, PTSD, history of Sterling's palsy, Osteoarthritis, left knee replacement, Breast cysts, Obesity, Tubular adenoma 2014, Edentulous with dentures, Former smoker, dry eye syndrome OU, Lymphedema lower extremities, The patient has a history of asthma and was recently treated for a urinary tract infection.. * Surgical History:?breast adam or right, benign 1974, left breast tumor, benign cyst 1974, Spur surgery 2002, left total knee replaacement 2012, right total knee replacement 2016, Nasal surgery 1989, pre cancerous cervical cells. Excision 2004, pre cancerous lesion removed from right foot 2004, upper GI series , dental implants 01/2020, Bilateral total knee arthroplasty 2020-10-12, Laser dental surgery 07/2022, Cataract surgery . * Hospitalization/Major Diagno stic Procedure:?total dental extractions , right knee replacement, [facility] , colonoscopy, one hyperplastic polyp 2014, colonoscopy, [facility] 2017, NaSal turbinate resection , No history . * Family History:?Father: dece ased 83 yrs, diagnosed with CVD, Cancer.?Mother: 87 yrs, Osteoarthritis, history of diverticulitis, lives alone.?Siblings: alive.?Paternal Grand Mother: , diagnosed with Cancer.?Paternal aunt: , diagnosed with Cancer.?Maternal aunt: , diagnosed with Cancer.?1 brother(s) , 4 sister(s) - healthy. 2 son(s) - healthy. .? Her father had a history of leukemia but of heart disease. Her siblings are healthy and well. HER-2 sons are healthy and well and she has no grandchildren. She is unaware of any history of breast or ovarian cancer. She is not aware of any family history of substance abuse, addiction or mental illness. * Social History:?Tobacco Use:?Tobacco Control (Standard)?Tobacco use:?Former smoker ?How long has it been since you last smoked??Greater than 10 years ?Additional Findings: Tobacco non-user?Ex-cigarette smoker ???Drugs/Alcohol:?Drugs?Have you used drugs other than those for medical reasons in the past 12 months??No ???Drug/Alcohol:?AUDIT-C (Standard)?Did you have a drink containing alcohol in the past year??No ?Points?0 ?Interpretation?Negative ???She was born in [facility]. She is and lives with a significant other. She has 2 sons, Manuel and Tomy and no grandchildren. 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 She has no toxic exposures. Her mammograms are done at the [facility] in [place]. Exposed as a child to Asbestos and TCE. * Medications:?Taking Lisinopr il 10 MG Tablet TAKE 1 TABLET ONCE DAILY , Taking Levothyroxine Sodium 88 MCG Tablet TAKE 1 TABLET DAILY , Taking OneTouch Verio - Strip as directed In Vitro Once a day , Taking Methenamine Hippurate 1 GM Tablet 1 tablet Orally Twice a day , Taking Aspirin 81 81 MG Tablet Chewable 1 tablet Orally Once a day , Taking Azelastine HCl 137 MCG/SPRAY Solution 2 sprays in each nostril Nasally Twice a day , Taking Semaglutide(0.25 or 0.5MG/DOS) 2 MG/3ML Solution Pen-injector as directed Subcutaneous , Taking Chlorthalidone 25 MG Tablet TAKE 1/2 TABLET DAILY , Taking amLODIPine Besylate 5 MG Tablet TAKE 1 TABLET ONCE DAILY , Taking metFORMIN HCl 500 MG Tablet TAKE 1 TABLET TWICE DAILY WITH MEALS , Taking Ventolin HFA 108 (90 Base) MCG/ACT Aerosol Solution 1 puff as needed Inhalation every 4 hrs , Taking Atorvastatin Calcium 10 MG Tablet TAKE 1 TABLET ONCE DAILY , Medication List reviewed and reconciled with the patient * Allergies:?Wellbutrin, Lexap ro, Effexor, Topamax, CeleBREX, Meloxicam. Objective: * Vitals:?Ht: 66, Wt:196, BMI: 31.63, BP:139/63, HR:64, Temp:98.4, Wt-k.9. * ???Past Orders: Lab:URINE DIP STICK * Collection Date 10/21/2024 10/19/2023 10/13/2022 Order Date 10/21/2024 10/19/2023 10/12/2022 SG 1.010 (Ref Range: 1.005 - 1.025) 1.015 (Ref Range: 1.005 - 1.025) 1.025 (Ref Range: 1.005 - 1.025) pH 6.0 (Ref Range: 5.0 - 9.0) 6.0 (Ref Range: 5.0 - 9.0) 5.0 (Ref Range: 5.0 - 9.0) GUCCI Negative (Ref Range: Negative -) Negative (Ref Range: Negative -) Negative (Ref Range: Negative -) NIT Negative (Ref Range: Negative -) Negative (Ref Range: Negative -) Negative (Ref Range: Negative -) PRO Negative (Ref Range: Negative - Trace) 15 (Ref Range: Negative - Trace) 15 (Ref Range: Negative - Trace) GLU Negative (Ref Range: Negative -) Negative (Ref Range: Negative -) Negative (Ref Range: Negative -) KET Negative (Ref Range: Negative -) Negative (Ref Range: Negative -) Negative (Ref Range: Negative -) UBG 0.2 (Ref Range: 0.1 - 1.8) 0.2 (Ref Range: 0.1 - 1.8) 0.2 (Ref Range: 0.1 - 1.8) DANNY Negative (Ref Range: 0.2 - 1.3) Negative (Ref Range: 0.2 - 1.3) Negative (Ref Range: 0.2 - 1.3) BLD Negative (Ref Range: Negative -) Positive (Ref Range: Negative -) Negative (Ref Range: Negative -) Menstrating NR NR N/A * Examination: ???General Examination: ?GENERAL APPEARANCE:?pleasant, well nourished, well developed, in no acute distress, calm and relaxed.?HEAD:?atraumatic, normocephalic.?EYES:?eomi, perrla, anicteric, conjugate.?EARS:?normal.?NOSE:?septum intact.?ORAL CAVITY:?normal, unremarkable.?NECK/THYROID:?no jugular venous distention, no carotid bruit, thyroid normal.?LYMPH NODES:?no enlarged lymph nodes,spleen normal.?SKIN:?no suspicious lesions, anicteric.?HEART:?no clicks, gallops, murmurs, or rubs, regular rhythm, S1, S2 normal, no s3, or vascular bruits.?LUNGS:?clear to auscultation .?BREASTS:??no masses palpable bilaterally.?ABDOMEN:?bowel sounds normal, no ascites, no organomegaly, no mass.?RECTAL EXAM:?not examined.?MUSCULOSKELETAL:?extremities unremarkable, no clubbing, cyanosis or edema.?PERIPHERAL PULSES:?normal.?NEUROLOGIC:?alert and oriented, cranial nerves 2-12 grossly intact, deep tendon reflexes 2+ symmetrical, motor strength normal upper and lower extremities, sensory exam intact.?PSYCH:?alert, oriented.? Assessment: * Assessment: 1.?Annual physical exam - Z0 0.00 (Primary)???2.?UTI (urinary tract infection), uncomplicated - N39.0???3.?Chest discomfort - R07.89???4.?Left foot pain - M79.672???5.?Mixed hyperlipidemia - E78.2???6.?Hypothyroidism, unspecified type - E03.9???7.?Primary osteoarthritis involving multiple joints - M15.0??? Plan: * Treatment: ? Value Reference Range ?SG 1.010 1.005 - 1.025 * ?pH 6.0 5.0 - 9.0 * ?GUCCI Negative Negative - * ?NIT Negative Negative - * ?PRO Negative Negative - Trac e * ?GLU Negative Negative - * ?KET Negative Negative - * ?UBG 0.2 0.1 - 1.8 * ?DANNY Negative 0.2 - 1.3 * ?BLD Negative Negative - 2.?UTI (urinary tract infection), uncomplicated? Continue Atorvastatin Calcium Tablet, 10 MG, TAKE 1 TABLET ONCE DAILY;?Continue Lisinopril Tablet, 10 MG, TAKE 1 TABLET ONCE DAILY;?Continue OneTouch Verio Strip, -, as directed, In Vitro, Once a day;?Continue Methenamine Hippurate Tablet, 1 GM, 1 tablet, Orally, Twice a day;?Continue Aspirin 81 Tablet Chewable, 81 MG, 1 tablet, Orally, Once a day;?Continue Azelastine HClSolution, 137 MCG/SPRAY, 2 sprays in each nostril, Nasally, Twice a day;?Continue Semaglutide(0.25 or 0.5MG/DOS) Solution Pen-injector, 2 MG/3ML, as directed, Subcutaneous;?Continue Chlorthalidone Tablet, 25 MG, TAKE 1/2 TABLET DAILY;?Continue amLODIPine Besylate Tablet, 5 MG, TAKE 1TABLET ONCE DAILY;?Continue metFORMIN HCl Tablet, 500 MG, TAKE 1 TABLET TWICE DAILY WITH MEALS;?Continue Ventolin HFA Aerosol Solution, 108 (90 Base) MCG/ACT, 1 puff as needed, Inhalation, every 4 hrs.??3.?Chest discomfort?LAB: PROFILE, FASTING (COMPREHENSIVE METABOLIC) ?LAB: TSH (THYROID STIMULATING HORMONE) ?LAB: CRP ?LAB: RHEUMATOID FACTOR (RA, RF) ?LAB: CBC w DIFF ?LAB: PEBBLES (WOJCIECH) ?LAB: Lipid Panel ?LAB: Free T4 (Free Thyroxine)? Referral To:GARETT GONZALES??Cardiology ?Reason:new onset chest discomfort evaluate and treatment 4.?Left foot pain?LAB: PROFILE, FASTING (COMPREHENSIVE METABOLIC) ?LAB: TSH (THYROID STIMULATING HORMONE) ?LAB: CRP ?LAB: RHEUMATOID FACTOR (RA, RF) ?LAB: CBC w DIFF ?LAB: PEBBLES (WOJCIECH) ?LAB: Lipid Panel ?LAB: Free T4 (Free Thyroxine) ?Imaging: XR FOOT LT5.?Mixed hyperlipidemia?LAB: PROFILE, FASTING (COMPREHENSIVE METABOLIC) ?LAB: TSH (THYROID STIMULATING HORMONE) ?LAB: CRP ?LAB: RHEUMATOID FACTOR (RA, RF) ?LAB: CBC w DIFF ?LAB: PEBBLES (WOJCIECH) ?LAB: Lipid Panel ?LAB: Free T4 (Free Thyroxine)6.?Hypothyroidism, unspecified type?LAB: PROFILE, FASTING (COMPREHENSIVE METABOLIC) ?LAB: TSH (THYROID STIMULATING HORMONE) ?LAB: CRP ?LAB: RHEUMATOID FACTOR (RA, RF) ?LAB: CBC w DIFF ?LAB: PEBBLES (WOJCIECH) ?LAB: Lipid Panel ?LAB: Free T4 (Free Thyroxine)7.?Primary osteoarthritis involving multiple joints?LAB: PROFILE, FASTING (COMPREHENSIVE METABOLIC) ?LAB: TSH (THYROID STIMULATING HORMONE) ?LAB: CRP ?LAB: RHEUMATOID FACTOR (RA, RF) ?LAB: CBC w DIFF ?LAB: PEBBLES (WOJCIECH) ?LAB: Lipid Panel ?LAB: Free T4 (Free Thyroxine)8.?Others? Continue Levothyroxine Sodium Tablet, 88 MCG, TAKE 1 TABLET DAILY.?? * Procedure Codes:?00082 URINE -NO MICRO * Preventive Medicine:? ??Counseling:?Care goal follow-up plan:?Counseling for abnormal BMI given?Yes ?Above Normal BMI Follow-up?Dietary management education, guidance, and counseling, Dietary needs education, Exercise promotion: strength training, Exercise promotion: stretching, Feeding regime, Giving encouragement to exercise, Lifestyle education regarding diet, Nutrition / feeding management, Nutrition therapy, Prescribed activity/exercise education, Prescribed diet education, Prescribed dietary intake, Special diet education, Weight monitoring , Intervention, Order not done: Medical or Other reason not done * Follow Up:?after testing (Re ason: OV review labs/x ray) * Images: * The named appointment provid er may or may not be the originator of this progress note, and it is not deemed complete until electronically signed by the appointment provider. Sign off status: Pending * Provider:?Jerald Singh MD Date:?10/08 Generated for Ricardo kathleen/Roya/Lorenasmitting on:?10/21/2024 12:30 PM EDT History and Physical Notes * HPI (History of Present Illness) Category Sub-Category Detail Notes Depression Screening PHQ-9 Little inte rest or pleasure in doing things: Not at all Feeling down, depressed, or hopeless: No t at all Trouble falling or staying asleep, or sl eeping too much: Not at all Feeling tired or having little energy: N ot at all Poor appetite or overeating: Not at all Feeling bad about yourself o r that you are a failure, or have let yourself or your family down: Not at all Trouble concentrating on thi ngs, such as reading the newspaper or watching television: Not at all Moving or speaking so slowly that other people could have noticed; or the opposite, being so fidgety or restless that you have been moving around a lot more than usual: Not at all Thoughts that you would be b parris off or of hurting yourself in some way: Not at all Total Score: 0 Fall Risk Screening Fall History Have you had any falls with injury in the past year?: No Have you had two or more falls in the year?: No Fall Risk Assessment:: No falls in the year COVID-19 Screening Questions Have you had any new onset fever, chills, cough, congestion, sore throat, shortness of breath, muscle aches?: No SDOH Questions SDOH Questions In the past year have you been worried about losing your housing?: No In the past year have you or any family members you live with been unable to get any of the following when it was really needed? Check all that apply:: None Examination Category Sub-Category Detail Notes General Examination GENERAL APPEARANCE: pleasant , well nourished, well developed, in no acute distress, calm and relaxed HEAD: atraumatic, normocep halic EYES: eomi, perrla, anicte cesario, conjugate EARS: normal NOSE: septum intact NECK/THYROID: no jugular venous di stention, no carotid bruit, thyroid normal HEART: no clicks, gallops, murmurs, or rubs, regular rhythm, S1, S2 normal, no s3, or vascular bruits LUNGS: clear to auscultatio n ABDOMEN: bowel sounds normal, no ascites, no organomegaly, no mass NEUROLOGIC: alert and oriented, cranial nerves 2-12 grossly intact, deep tendon reflexes 2+ symmetrical, motor strength normal upper and lower extremities, sensory exam intact SKIN: no suspicious lesion s, anicteric PERIPHERAL PULSES: normal BREASTS: no masses palpable b ilaterally MUSCULOSKELETAL: extremities unremark able, no clubbing, cyanosis or edema LYMPH NODES: no enlarged lymph no marquita,spleen normal RECTAL EXAM: not examined PSYCH: alert, oriented ORAL CAVITY: normal, unremarkable Consultation Request Notes Referral Date Referring Provider Referred Provider Not 10/21/2024 Jerald Singh ADAM new onset ches t discomfort evaluate and treatment
--- OUTSIDE RECORDS SUMMARY | 2024-10-21 12:31 | XMS_ITS ---
Author Organization Jerald Singh III, MD Address [address] 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 Name Role Phone Jerald Singh Primary Care Provider Allergies Allergen (clinical drug ingredient) Drug/Non Drug Allergy documented on EMR Reaction Allergy Type Onset Date Status meloxicam Meloxicam Unknown Drug Allergy Active Wellbutrin Unknown Drug Allergy Active topiramate Topamax Unknown Drug Allergy Active escitalopram Lexapro Unknown Drug Allergy Acti ve Effexor Unknown Drug Allergy Active celecoxib CeleBREX Unknown Drug Allergy Active REASON FOR VISIT Recent viral syndrome, Recent urinary tract infection, Diabetes, Hypothyroidism, Sleep apnea, Depression Medications Medication SIG (Take, Route, Frequency, Duration) Notes Start Date End Date Status Semaglutide(0.25 or 0.5MG/DOS) 2 MG/3ML as directed Subcutaneous Active Chlorthalidone 25 MG TAKE 1/2 TABLET DAILY Active amLODIPine Besylate 5 MG TAKE 1 TABLET ONCE DAILY Active metFORMIN HCl 500 MG TAKE 1 TABLET TWICE DAILY WITH MEALS Active Ventolin HFA 108 (90 Base) MCG/ACT 1 puff as needed Inhalation every 4 hrs 08/12/2024 Active Azelastine HCl 137 MCG/SPRAY 2 sprays in each nostril Nasally Twice a day 03/25/2022 Active Atorvastatin Calcium 10 MG TAKE 1 TABLET ONCE DAILY Active OneTouch Verio - as directed In Vitro Once a day Active Methenamine Hippurate 1 GM 1 tablet Oral ly Twice a day Active Aspirin 81 81 MG 1 tablet Orally Once a day Active Lisinopril 10 MG TAKE 1 TABLET ONCE DAILY Active Levothyroxine Sodium 88 MCG TAKE 1 TABLET DAILY Active Social History Tobacco Use: Social History Observation Description Date Details (start date - stop date) Former Smoker NA - NA Sex Assigned At : Social History Observation Description Sex Assigned At Female Tobacco Use/Smoking Question Answer Notes Patient is a former smoker How long has it been since you last smoked? > 10 years Additional Findings: Tobacco Non-User Ex-cigaret te smoker Problems Problem Type SNOMED Code ICD Code Onset Dates Problem Status W/U Status Risk Notes Problem 69265805 Viral bronchitis (J20.8) Active confirmed We had a discussion about the expected returns and antipyretics and cough suppressants today. She will use a product with dextromethorpha n. Vital Signs Temperature 97.0 degrees Fahrenheit 08/16/19 25 Blood pressure systolic 138 mm Hg 08/16/19 25 Blood pressure diastolic 67 mm Hg 025 Heart Rate 71 /min 08/16/2024 Height 66 in 08/16/2024 Weight 198 lbs 08/16/2024 BMI 31.95 kg/m2 08/16/2024 Encounters Encounter Location Date Provider Diagnosis Jerald Singh III, MD [address] [place] [address] [place] [address] 08/16/2024 Jerald Singh UTI (urinary tract infection), uncomplicated N39.0 ; Viral bronchitis J20.8 ; Obstructive sleep apnea G47.33 ; Former smoker Z87.891 ; Exertional asthma J45.990 and History of depression Z86.59 Assessments Encounter Date Diagnosis (ICD Code) Assessment Notes Treat ment Notes Treatment Clinical Notes 08/16/2024 UTI (urinary tract infection), uncomplicated (ICD-10 - N39.0) This has completely resolved with Macrobid given to her by the urologist. She has completed the antibiotic and is now asymptomatic. 08/16/2024 Viral bronchitis (ICD-10 - J20.8) We had a discussion about the expected returns and antipyretics and cough suppressants today. She will use a product with dextromethorphan. 08/16/2024 Obstructive sleep apnea (ICD-10 - G47.33) She has been compliant with therapy and no change was made. She is sleeping well at night and denies any daytime somnolence. 08/16/2024 Former smoker (ICD-10 - Z87.891) She seems highly motivated not to smoke. We discussed a plan to prevent relapse in times of stress and illness. 08/16/2024 Exertional asthma (ICD-10 - J45.990) She was breathing comfortably today. She says she had some exertional wheezing during the pollen season but this has improved. No change in her therapy was needed today. 08/16/2024 History of depression (ICD-10 - Z86.59) Her depression continues under good control without relapse. No change in her medications. Was necessary. Plan Of Treatment Medication Medication Name Sig Start Date Stop Date Notes Semaglutide(0.25 or 0.5MG/DO S) 2 MG/3ML as directed Subcutaneous Chlorthalidone 25 MG TAKE 1/2 TABLET DAILY amLODIPine Besylate 5 MG TAKE 1 TABLET ONCE DAILY metFORMIN HCl 500 MG TAKE 1 TABLET TWICE DAILY WITH MEALS Ventolin HFA 108 (90 Base) MCG/ACT 1 puff as needed Inhalation every 4 hrs 08/12/2024 Azelastine HCl 137 MCG/SPRAY 2 sprays in each nostril Nasally Twice a day 03/25/2022 Atorvastatin Calcium 10 MG TAKE 1 TABLET ONCE DAILY OneTouch Verio - as directed In Vitro Once a day Methenamine Hippurate 1 GM 1 tablet Orally Twice a day Aspirin 81 81 MG 1 tablet Orally Once a day Lisinopril 10 MG TAKE 1 TABLET ONCE DAILY Levothyroxine Sodium 88 MCG TAKE 1 TABLET DAILY Next Appt Details Follow Up: As Scheduled, Oct, Reason: Annual Exam, Routine check-up Provider Name:Jerald Singh, 11/05/2024 03:30:00 PM, [address] [place] [address] [address], [place], [id number], Provider Name:Jerald Singh, 10/22/2025 09:30:00 AM, [address] [place] [address] [address], [place], [id number], Progress Notes * Andria SUBRAMANIANDOB: [birth year] (69 yo F)Acc No.[id number]:08/16/2024 Progress Notes Patient:?Andria SUBRAMANIAN Provider:?Jerald Singh MD :[id number]???Age:69 Y???Sex:Female D ate:08/16/2024 Address:[address] [place] [address] [address] , [place], [id number] Subjective: * Chief Complaints: * ???Recent viral syndromeRece nt urinary tract infectionDiabetesHypothyroidismSleep apneaDepression * HPI: ???COVID-19 Screening:?Questions?Have you had any new onset fever, chills, cough, congestion, sore throat, shortness of breath, muscle aches??Yes Congestion ???:? The patient, a 69-year-old female, reported an intermittent achy feeling. She also mentioned having a urinary tract infection around the same time. She has been experiencing side effects from her weight loss shots, but these are starting to subside. She has been sleeping well due to not feeling well. She also mentioned having diabetes, which seems to be under control with a blood sugar level of around 105. She has been experiencing a cough, which the doctor attributes to a virus infecting the lining of her airways. She also mentioned having cataract surgery and is due to see her doctor in a few weeks to address an issue with seeing halos around lights at night. Blood Sugar Level is 105. * ROS:?General/Constitutional:?pain?only normal aches and pains.?Chills?denies.?Fatigue?admits.?Fever?denies.?ENT:?Decreased hearing?denies.?Respiratory:?Cough?non-productive.?Cardiovascular:?Chest pain with exertion?denies.?Dyspnea on exertion?denies.?Shortness of breath?with exertion.?Gastrointestinal:?Constipation?occasional.?Decreased appetite?denies.?Diarrhea?denies.?Heartburn?denies.?Nausea?denies.?Rectal bleeding?denies.?Vomiting?denies.?Hematology:?bruising?denies.?petechiae?denies.?Swollen glands?none have been noted.?Genitourinary:?Frequent urination?at night.?Musculoskeletal:?Muscle aches?denies.?Painful joints?denies.?Sciatica?denies.?Weakness?denies.?Skin:?Itching?denies.?Rash?denies.?Skin lesion(s)?denies.?Neurologic:?Difficulty speaking?denies.?Dizziness?denies.?Headache?denies.?Low back pain?denies.?Psychiatric:?Depressed mood?which is mild.? * Medical History:? * Surgical History:?breast adam or right, benign 1975left breast tumor, benign cyst 1975Spur surgery 2003left total knee replaacement 2013right total knee replacement 2017Nasal surgery 1990pre cancerous cervical cells. Excision 2005pre cancerous lesion removed from right foot 2005upper GI series dental implants 01/2020Bilateral total knee arthroplasty [id number] dental surgery 07/2022No history Cataract surgery * Hospitalization/Major Diagno stic Procedure:?total dental extractions right knee replacement, [facility] colonoscopy, one hyperplastic polyp 2015colonoscopy, [facility] 2018NaSal turbinate resection No history * Family History:?Father: dece ased 83 yrs, diagnosed with Cancer, CVD.?Mother: 87 yrs, Osteoarthritis, history of diverticulitis, lives [...] or mental illness. * Social History:?Tobacco Use:?Tobacco Use/Smoking?Patient is a?former smoker ?How long has it been since you last smoked??> 10 years ?Additional Findings: Tobacco Non-User?Ex-cigarette smoker ???She was born in [facility]. She is and lives with a significant other. She has 2 sons, Manuel and Tomy and no grandchildren. 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 She has no toxic exposures. Her mammograms are done at the [facility] in [place]. Exposed as a child to Asbestos and TCE. * Medications:?TakingLisinopri l 10 MG Tablet TAKE 1 TABLET ONCE DAILY Levothyroxine Sodium 88 MCG Tablet TAKE 1 TABLET DAILY Atorvastatin Calcium 10 MG Tablet TAKE 1 TABLET ONCE DAILY OneTouch Verio - Strip as directed In Vitro Once a day Methenamine Hippurate 1 GM Tablet 1 tablet Orally Twice a day Aspirin 81 81 MG Tablet Chewable 1 tablet Orally Once a day Azelastine HCl 137 MCG/SPRAY Solution 2 sprays in each nostril Nasally Twice a day Semaglutide(0.25 or 0.5MG/DOS) 2 MG/3ML Solution Pen-injector as directed Subcutaneous Chlorthalidone 25 MG Tablet TAKE 1/2 TABLET DAILY amLODIPine Besylate 5 MG Tablet TAKE 1 TABLET ONCE DAILY metFORMIN HCl 500 MG Tablet TAKE 1 TABLET TWICE DAILY WITH MEALS Ventolin HFA 108 (90 Base) MCG/ACT Aerosol Solution 1 puff as needed Inhalation every 4 hrs Medication List reviewed and reconciled with the patientTaking Lisinopril 10 MG Tablet TAKE 1 TABLET ONCE DAILY Taking Levothyroxine Sodium 88 MCG Tablet TAKE 1 TABLET DAILY Taking Atorvastatin Calcium 10 MG Tablet TAKE 1 TABLET ONCE DAILY Taking OneTouch Verio - Strip as directed In Vitro Once a day Taking Methenamine Hippurate 1 GM Tablet 1 tablet Orally Twice a day Taking Aspirin 81 81 MG Tablet Chewable 1 tablet Orally Once a day Taking Azelastine HCl 137 MCG/SPRAY Solution 2 sprays in each nostril Nasally Twice a day Taking Semaglutide(0.25 or 0.5MG/DOS) 2 MG/3ML Solution Pen-injector as directed Subcutaneous Taking Chlorthalidone 25 MG Tablet TAKE 1/2 TABLET DAILY Taking amLODIPine Besylate 5 MG Tablet TAKE 1 TABLET ONCE DAILY Taking metFORMIN HCl 500 MG Tablet TAKE 1 TABLET TWICE DAILY WITH MEALS Taking Ventolin HFA 108 (90 Base) MCG/ACT Aerosol Solution 1 puff as needed Inhalation every 4 hrs Medication List reviewed and reconciled with the patient * Allergies:?WellbutrinLexapro EffexorTopamaxCeleBREXMeloxicamno[Allergies Verified] Objective: * Vitals:?Ht: 66, Wt:198, BMI: 31.95, BP:138/67, HR:71, Temp:97.0, Wt-k.81. * Examination: ???General Examination: ?GENERAL APPEARANCE:?pleasant, well nourished, well developed, in no acute distress, calm and relaxed, obese, woman.?HEAD:?atraumatic, normocephalic.?EYES:?eomi, perrla, anicteric, conjugate.?EARS:?normal.?NOSE:?septum intact.?ORAL CAVITY:?normal, unremarkable.?NECK/THYROID:?no jugular venous distention, no carotid bruit, thyroid normal.?LYMPH NODES:?no enlarged lymph nodes,spleen normal.?SKIN:?no suspicious lesions, anicteric.?HEART:?no clicks, gallops, murmurs, or rubs, regular rhythm, S1, S2 normal, no s3, or vascular bruits.?LUNGS:?clear to auscultation .?BREASTS:?Not examined.?ABDOMEN:?bowel sounds normal, no ascites, no organomegaly, no mass, centripital obesity.?RECTAL EXAM:?not examined.?MUSCULOSKELETAL:?extremities unremarkable, no clubbing, cyanosis or edema.?PERIPHERAL PULSES:?normal.?NEUROLOGIC:?alert and oriented, cranial nerves 2-12 grossly intact, deep tendon reflexes 2+ symmetrical, motor strength normal upper and lower extremities, sensory exam intact.?PSYCH:?alert, oriented.? Assessment: * Assessment: 1.?Viral bronchitis - J20.8 (Primary)???Notes :We had a discussion about the expected returns and antipyretics and cough suppressants today.? She will use a product with dextromethorphan.???2.?UTI (urinary tract infection), uncomplicated - N39.0???Notes :This has completely resolved with Macrobid given to her by the urologist. She has completed the antibiotic and is now asymptomatic.???3.?Obstructive sleep apnea - G47.33???Notes :She has been compliant with therapy and no change was made. She is sleeping well at night and denies any daytime somnolence.???4.?Former smoker - Z87.891???Notes :She seems highly motivated not to smoke. We discussed a plan to prevent relapse in times of stress and illness.???5.?Exertional asthma - J45.990???Notes :She was breathing comfortably today. She says she had some exertional wheezing during the pollen season but this has improved. No change in her therapy was needed today.???6.?History of depression - Z86.59???Notes :Her depression continues under good control without relapse. No change in her medications. Was necessary.??? Plan: * Treatment: 2.?Others? Continue Levothyroxine Sodium Tablet, 88 MCG, TAKE 1 TABLET DAILY.?? * Procedure Codes:? * Preventive Medicine:? ??Counseling:?Care goal follow-up plan:?Counseling [...] done: Medical or Other reason not done ?Smoking/Tobacco Use?Patient counseled on the dangers of tobacco use and urged to quit.?08/16/2024 * Follow Up:?As Scheduled, Oct (Reason: Annual Exam, Routine check-up) * Images: * Sign off status: Completed true * Provider:?Jerald Singh MD Date:?01/2025 Generated for Maninderi frannie/Roya/eTransmitting on:?10/21/2024 12:30 PM EDT History and Physical Notes * HPI (History of Present Illness) Category Sub-Category Detail Notes COVID-19 Screening Questions Have you had any new onset fever, chills, cough, congestion, sore throat, shortness of breath, muscle aches?: Yes Congestion Examination Category Sub-Category Detail Notes General Examination GENERAL APPEARANCE: pleasant , well nourished, well developed, in no acute distress, calm and relaxed, obese, woman HEAD: atraumatic, normocep halic EYES: eomi, perrla, anicte cesario, conjugate EARS: normal NOSE: septum intact NECK/THYROID: no jugular venous di stention, no carotid bruit, thyroid normal HEART: no clicks, gallops, murmurs, or rubs, regular rhythm, S1, S2 normal, no s3, or vascular bruits LUNGS: clear to auscultatio n ABDOMEN: bowel sounds normal, no ascites, no organomegaly, no mass, centripital obesity NEUROLOGIC: alert and oriented, cranial nerves 2-12 grossly intact, deep tendon reflexes 2+ symmetrical, motor strength normal upper and lower extremities, sensory exam intact SKIN: no suspicious lesion s, anicteric PERIPHERAL PULSES: normal BREASTS: Not examined MUSCULOSKELETAL: extremities unremark able, no clubbing, cyanosis or edema LYMPH NODES: no enlarged lymph no marquita,spleen normal RECTAL EXAM: not examined PSYCH: alert, oriented ORAL CAVITY: normal, unremarkable
--- OUTSIDE RECORDS SUMMARY | 2024-10-21 12:31 | XMS_ITS ---
Author Organization Jerald Singh III, MD Address [address] [place] [address] Care Team Providers Care Manager Wealth Management Name Role Phone Jerald Singh Primary Care Provider Allergies Allergen (clinical drug ingredient) Drug/Non Drug Allergy documented on EMR Reaction Allergy Type Onset Date Status meloxicam Meloxicam Unknown Drug Allergy Active Wellbutrin Unknown Drug Allergy Active topiramate Topamax Unknown Drug Allergy Active escitalopram Lexapro Unknown Drug Allergy Acti ve Effexor Unknown Drug Allergy Active celecoxib CeleBREX Unknown Drug Allergy Active REASON FOR VISIT bacterial bronchitis, diabetes, hypothyroid, asthma, sleep apnea, hypertension Medications Medication SIG (Take, Route, Frequency, Duration) Notes Start Date End Date Status Methenamine Hippurate 1 GM 1 tablet Oral ly Twice a day Active Aspirin 81 81 MG 1 tablet Orally Once a day Active Azelastine HCl 137 MCG/SPRAY 2 sprays in each nostril Nasally Twice a day 03/25/2022 Active Ventolin HFA 108 (90 Base) MCG/ACT 1 puff as needed Inhalation every 4 hrs for 28 days 08/12/2024 Active Semaglutide(0.25 or 0.5MG/DOS) 2 MG/3ML as directed Subcutaneous Active Atorvastatin Calcium 10 MG TAKE 1 TABLET ONCE DAILY Active OneTouch Verio - as directed In Vitro Once a day Active Lisinopril 10 MG TAKE 1 TABLET ONCE DAILY Active Levothyroxine Sodium 88 MCG TAKE 1 TABLET DAILY Active Chlorthalidone 25 MG TAKE 1/2 TABLET DAILY Active amLODIPine Besylate 5 MG TAKE 1 TABLET ONCE DAILY Active metFORMIN HCl 500 MG TAKE 1 TABLET TWICE DAILY WITH MEALS Active Social History Tobacco Use: Social History [...] Problem Status W/U Status Risk Notes Problem [id number] Bronchitis (J40) Active confirmed He has an apparent viral syndrome with bronchitis. She is using an expectorant and a cough suppressant. She has recently completed courses of 2 antibiotics. We discussed the at home treatment of the illness. She is going to report every 48 hours by telephone. Vital Signs Height 66 in 08/12/2024 Weight 198 lbs 08/12/2024 BMI 31.95 kg/m2 08/12/2024 Encounters Encounter Location Date Provider Diagnosis Jerald Singh III, MD [address] [place] [address] [address] [facility] [address] 08/12/2024 Jerald Singh UTI (urinary tract infection), uncomplicated N39.0 ; Bronchitis J40 ; Mixed hyperlipidemia E78.2 ; Type 2 diabetes mellitus with complication, without long-term current use of insulin E11.8 ; Hypothyroidism, unspecified type E03.9 ; Seasonal allergies J30.2 and Former smoker Z87.891 Assessments Encounter Date Diagnosis (ICD Code) Assessment Notes Treat ment Notes Treatment Clinical Notes 08/12/2024 UTI (urinary tract infection), uncomplicated (ICD-10 - N39.0) This has completely resolved with Macrobid given to her by the urologist. She has completed the antibiotic and is now asymptomatic. 08/12/2024 Bronchitis (ICD-10 - J40) He has an apparent viral syndrome with bronchitis. She is using an expectorant and a cough suppressant. She has recently completed courses of 2 antibiotics. We discussed the at home treatment of the illness. She is going to report every 48 hours by telephone. 08/12/2024 Mixed hyperlipidemia (ICD-10 - E78.2) Her lipids have been controlled. Comprehensive blood work with a fasting lipid profile were ordered today. No change in her medications was necessary. She has gained 10 pounds since her last visit. 08/12/2024 Type 2 diabetes mellitus with complication, without long-term current use of insulin (ICD-10 - E11.8) She has gained 10 pounds since her last visit. Her hemoglobin A1c is 6.1. No change in her medications was made. We reviewed her weight loss strategy at length. 08/12/2024 Hypothyroidism, unspecified type (ICD-10 - E03.9) She is clinically euthyroid. Thyroid function tests have been ordered. 08/12/2024 Seasonal allergies (ICD-10 - J30.2) She experienced moderate allergies during the recent heavy pollen season. These have now resolved. She relied upon [id number] oral medication heavily. 08/12/2024 Former smoker (ICD-1 0 - Z87.891) She seems highly motivated not to smoke. We discussed a plan to prevent relapse in times of stress and illness. Plan Of Treatment Medication Medication Name Sig Start Date Stop Date Notes Methenamine Hippurate 1 GM 1 tablet Orally Twice a day Aspirin 81 81 MG 1 tablet Orally Once a day Azelastine HCl 137 MCG/SPRAY 2 sprays in each nostril Nasally Twice a day 03/25/2022 Ventolin HFA 108 (90 Base) MCG/ACT 1 puff as needed Inhalation every 4 hrs for 28 days 08/12/2024 Semaglutide(0.25 or 0.5MG/DO S) 2 MG/3ML as directed Subcutaneous Atorvastatin Calcium 10 MG TAKE 1 TABLET ONCE DAILY OneTouch Verio - as directed In Vitro Once a day Lisinopril 10 MG TAKE 1 TABLET ONCE DAILY Levothyroxine Sodium 88 MCG TAKE 1 TABLET DAILY Chlorthalidone 25 MG TAKE 1/2 TABLET DAILY amLODIPine Besylate 5 MG TAKE 1 TABLET ONCE DAILY metFORMIN HCl 500 MG TAKE 1 TABLET TWICE DAILY WITH MEALS Next Appt Details Follow Up: As Scheduled, Mon, Reason: OV, Follow-up on current condition Provider Name:Jerald Singh, 11/05/2024 03:30:00 PM, [address] [place] [address] [address], [place], [address], Provider Name:Jerald Singh, 10/22/2025 09:30:00 AM, [address] [place] [address] [address], [place], [address], Progress Notes * Andria SUBRAMANIAN: [birth year] (69 yo F)Acc No.[id number]:08/12/2024 Patient:?Andria SUBRAMANIAN Provider:?Jerald Singh MD :1955???Age:69 Y???Sex:Female D ate:08/12/2024 Address:[address] [place], [place] [id number] Subjective: * Chief Complaints: * ???Bacterial bronchitisDiabe tesHypothyroidAsthmaSleep apneaHypertension * HPI: ???:?Telehealth?Location of provider rendering services:?{...} [address] [facility] [address] ?Location of patient:?address listed in demographics for today's visit ?Patient identification confirmed using:?Name, ?Telehealth method:?Telephone only. Patient not visible to care provider. ?Consent:?Patient verbally consented to treatment, Patient verbally consented to billing insurance company, Patient informed of any privacy concerns related to method of visit ?Total time spent with patient (mins)?15 ?The patient, Andria, is a 69-year-old female who presented with a 10-day history of severe lung congestion. She reported experiencing different types of wheezing in various locations, constant nose blowing, and coughing fits that produce phlegm. The phlegm is sometimes clear and sometimes light green. She also reported a low- grade fever during the first few days of her illness. This is the second time she has experienced such symptoms, with the previous episode occurring a few months ago. She also mentioned having a urinary tract infection for which she was prescribed Macrobid by Dr. Renner's office 9 days ago. She has a history of asthma and currently uses an old inhaler. * ROS:?General/Constitutional:?pain?only normal aches and pains.?Chills?denies.?Fatigue?admits.?Admits?Fever,?denies.?Allergy/Immunology:?Admits?Wheezing.?ENT:?Decreased hearing?denies.?Respiratory:?Cough?non-productive.?Cardiovascular:?Chest pain with exertion?denies.?Dyspnea on exertion?denies.?Shortness of breath?denies.?Gastrointestinal:?Constipation?occasional.?Decreased appetite?denies.?Diarrhea?denies.?Heartburn?occasional.?Nausea?denies.?Rectal bleeding?denies.?Vomiting?denies.?Hematology:?bruising?denies.?petechiae?denies.?Swollen glands?none have been noted.?Genitourinary:?Frequent urination?denies.?Musculoskeletal:?Muscle aches?denies.?Painful joints?denies.?Sciatica?denies.?Weakness?denies.?Skin:?Itching?denies.?Rash?denies.?Skin lesion(s)?denies.?Neurologic:?Difficulty speaking?denies.?Dizziness?denies.?Headache?denies.?Low back pain?denies.?Psychiatric:?Depressed mood?denies.? * Medical History:? * Surgical History:?breast adam or right, benign 1975left breast tumor, benign cyst 1975Spur surgery 2003left total knee replaacement 2012right total knee replacement 2017Nasal surgery 1990pre cancerous cervical cells. Excision 2004pre cancerous lesion removed from right foot 2005upper GI series dental implants 01/2020Bilateral total knee arthroplasty [id number] dental surgery 07/2022No history * Hospitalization/Major Diagno stic Procedure:?total dental extractions right knee replacement, [facility] colonoscopy, one hyperplastic polyp 2015colonoscopy, [facility] 2018Na[place] turbinate resection No history * Family [...] Tobacco Non-User?Ex-cigarette smoker ???She was born in [facility]. She is and lives with a significant other. She has 2 sons, Manuel and Tomy and no grandchildren. 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 She has no toxic exposures. Her mammograms are done at the [facility] in [place]. Exposed as a child to Asbestos and [...] 1 TABLET TWICE DAILY WITH MEALS Taking Lisinopril 10 MG Tablet TAKE 1 TABLET [...] TAKE 1 TABLET TWICE DAILY WITH MEALS DiscontinuedBactrim DS 800-160 MG Tablet 1 tablet Orally twice a day Medication List reviewed and reconciled with the patientDiscontinued Bactrim DS 800-160 MG Tablet 1 tablet Orally twice a day Medication List reviewed and reconciled with the patient * Allergies:?WellbutrinLexapro EffexorTopamaxCeleBREXMeloxicamno[Allergies Verified] Objective: * Vitals:?Ht: 66, Wt:198, BMI: 31.95, Wt-k.81. Assessment: * Assessment: 1.?Bronchitis - J40 (Primary )???Notes :He has an apparent viral syndrome with bronchitis.? She is using an expectorant and a cough suppressant.? She has recently completed courses of 2 antibiotics.? We discussed the at home treatment of the illness.? She is going to report every 48 hours by telephone.???2.?UTI (urinary tract infection), uncomplicated - N39.0???Notes :This has completely resolved with Macrobid given to her by the urologist.? She has completed the antibiotic and is now asymptomatic.???3.?Mixed hyperlipidemia - E78.2???Notes :Her lipids have been controlled. Comprehensive blood work with a fasting lipid profile were ordered today. No change in her medications was necessary. She has gained 10 pounds since her last visit.???4.?Type 2 diabetes mellitus with complication, without long-term current use of insulin - E11.8???Notes :She has gained 10 pounds since her last visit. Her hemoglobin A1c is 6.1. No change in her medications was made. We reviewed her weight loss strategy at length.???5.?Hypothyroidism, unspecified type - E03.9???Notes :She is clinically euthyroid. Thyroid function tests have been ordered.???6.?Seasonal allergies - J30.2???Notes :She experienced moderate allergies during the recent heavy pollen season. These have now resolved. She relied upon bqtq-yvx-obgsrys oral medication heavily.???7.?Former smoker - Z87.891???Notes :She seems highly motivated not to smoke. We discussed a plan to prevent relapse in times of stress and illness.??? Plan: * Treatment: 2.?Others? Continue Levothyroxine Sodium Tablet, 88 MCG, TAKE 1 TABLET DAILY.?? * Procedure Codes:? * Preventive Medicine:? ??Counseling:?Care goal follow-up plan:?Counseling for abnormal BMI given?Yes ?Above Normal BMI Follow-up?Dietary management education, guidance, and counseling, Dietary needs education ?Smoking/Tobacco Use?Patient counseled on the dangers of tobacco use and urged to quit.?08/12/2024 ??DM Care Plan:?Patient Lifestyle Goals?Patient wants to be able to manage diabetes without too much effort.?Treatment Goals?Blood Sugars less than < 115, HbA1C < 7.0.?Barriers?no barriers.?Self-Managment Goals?Work on weight loss, with a goal of losing 1 lb per week.? * Follow Up:?As Scheduled, Mon (Reason: OV, Follow-up on current condition) * Images: * Sign off status: Completed true * Provider:?Jerald Singh MD Date:?09/2024 Generated for Ricardo kathleen/Roya/eTransmitting on:?10/21/2024 12:30 PM EDT History and Physical Notes * HPI (History of Present Illness) Category Sub-Category Detail Notes Telehealth [facility] ider rendering services:: {...} [address] [facility] [address] Location of patient:: address listed in demographics for today's visit Patient identification confirmed using:: Name, Telehealth method:: Telephone only. Dayana ent not visible to care provider. Consent:: Patient verbally c onsented to treatment, Patient verbally consented to billing insurance company, Patient informed of any privacy concerns related to method of visit Total time spent with patient (mins): 15
== END 2024-10-21 10:45 | disposition home or self-care (01) ==
LOC: HO.XRAY 10:44
PROVIDERS: PCP Internal Medicine Medical Oncology; Visit Provider Internal Medicine Medical Oncology
DX: M79.672 Pain in left foot (principal)
CPT/HCPCS: 73630

== ENCOUNTER → 2024-10-21 10:55 | Outpatient (BNV) | payer MEDICARE, SELFPAY | PROVIDERS: PCP Internal Medicine Medical Oncology; Visit Provider Radiology Diagnostic Radiology | DX: S92.352A Displaced fracture of fifth metatarsal bone, left foot, initial encounter for closed fracture (principal) | CPT/HCPCS: 73630 ==